=== PATIENT | male | born 1940 | race Caucasian/White ===

== ENCOUNTER 2023-07-31 18:35 | Emergency (ER) | payer MEDICARE, BC, SELFPAY ==
[2023-07-31 18:36] VITALS: BMI 28.4
[2023-07-31 18:43] VITALS: BP 157/82
[2023-07-31 19:00] VITALS: BP 158/77
[2023-07-31 19:02] LABS: % Basophils 0.9 % (0-2); % Eosinophils 6.9 % (0-6); % Immature Granulocytes 0.3 % (0-0.5); % Lymphocytes 23.1 % (20.5-51.1); % Monocytes 8.7 % (1.7-9.3); % Neutrophils 60.1 % (42.2-75.2); Absolute Basophils 0.1 10^3/uL (0-0.2); Absolute Eosinophils 0.5 10^3/uL (0-0.7); Absolute Lymphocytes 1.8 10^3/uL (1.2-3.4); Absolute Monocytes 0.7 10^3/uL (0.1-0.6); Absolute Neutrophils 4.6 10^3/uL (1.4-6.5); Hematocrit 39.3 % (39.0-52.0); Hemoglobin 13.5 g/dL (13.0-18.0); Mean Corp Hgb Conc. 34.4 g/dL (33.0-37.0); Mean Corpuscular Hgb 31.4 pg (27.0-31.0); Mean Corpuscular Volume 91.4 fL (80.0-94.0); Mean Platelet Volume 9.2 fL (7.4-10.4); Nucleated Red Blood Cells % 0 % (-); Platelet Count 272 10^3/uL (130-400); Red Cell Dist. Width 15.5 % (11.5-14.5); White Blood Cell Count 7.7 10^3/uL (4.8-10.8)
[2023-07-31] MEDS: DUONEB 3 ML INH (19:13)
[2023-07-31] MEDS: DECADRON 10 MG IV (19:13)
[2023-07-31 19:18] LABS: COVID-19 Antigen Negative (Negative)
[2023-07-31 19:24] LABS: ALT (SGPT) 23 U/L (0-50); AST (SGOT) 27 U/L (17-59); Alkaline Phosphatase 117 U/L (38-126); Blood Urea Nitrogen 14 mg/dl (9-20); Calcium 8.3 mg/dl (8.4-10.2); Carbon Dioxide 29 mmol/L (22-30); Chloride 101 mmol/L (98-107); Estimated Creatinine Clearance 65 ml/min; Glucose 102 mg/dl (70-99); Potassium 3.7 mmol/L (3.5-5.1); Sodium 134 mmol/L (135-145); Total Bilirubin 1.2 mg/dl (0.2-1.3); Total Protein 6.3 g/dl (6.3-8.2); eGFR > 60.00
[2023-07-31 19:33] LABS: NT-proBNP 86.3 pg/ml
--- NOTE | 2023-07-31 19:33 | ED.GENMED ---
History of Present Illness
General
Chief Complaint: Breathing Problem
Source: patient and family
Exam Limitations: none
Time Seen by Provider: 07/31/23 18:37
Nursing documentation reviewed up to this point in time: agreed with
Travel History
Have you had any contact with someone who has COVID-19?: No
Do you have any symptoms of coronavirus? Fever > 100 degrees, chills, cough, shortness of breath, sore throat, loss of taste or smell, muscle aches, or headache?: Yes
Symptoms:: SOB
History of Present Illness
History of Present Illness:
Patient to ED with complaint of SOB, wheezing. Daughter states he was diagnosed with Covid in jun. Since then he has had a persistant cough. OVer the past few days the cough has worsened. Denies fever/chills. Reports more frequent use of
albuterol without iprovement. PCP placed him on Ceftin on , still no improvment. Brought to ED via EMS for eval.
Past History
Past History
ED Past Medical History: CHF, COPD, HTN, Hypercholesterolemia, Psychiatric (depression) and Other (Normal pressure hydrocephalus, RA, psoriasis, BPH)
ED Past Surgical History: Cardiac (pacemaker) and Other (COLLATERAL CLERK shunt, pacemaker)
Social History
Tobacco: Former smoker
Alcohol: None
Drug: None
Personal:
Living: with family
Review of Systems
Review of Systems
Allergies reviewed?: Yes
All Other Systems: ROS reviewed and negative except as documented in HPI and ROS
Constitutional: Reports no symptoms
EENT: Reports no symptoms
Respiratory: Reports cough and trouble breathing
Cardiac: Reports no symptoms
ABD/GI: Reports no symptoms
: Reports no symptoms
Musculoskeletal: Reports no symptoms
Skin: Reports no symptoms
Neurological: Reports no symptoms
Psychiatric: Reports no symptoms
Phy Exam
General Physical Exam
General Presentation: well appearing and mild distress
General age: appears stated age
General Skin: warm and dry
General Habitus: normal
General Mental: alert
Cardiovascular Exam
Cardiovascular Exam: regular rate/rhythm
Pulmonary Exam
Pulmonary Exam: no respiratory distress and chest non tender
Breath Sounds: Wheeze: generalized
Gastrointestinal Exam
Gastrointestinal Exam: normal bowel sounds, non tender and soft
Musculoskeletal Exam
Musculoskeletal Exam: full ROM and neuro vasc intact
Skin Exam
Skin Exam: normal color, warm/dry and no rash
Psychiatric Exam
Psychiatric Exam: normal mood/affect
Scores
Heart Failure Risk
Heart Failure Risk Score: Not Applicable
Course
Orders/Labs/Results
Orders:
Orders
07/31/23 18:42
Electrocardiogram (*1) Urgent
Reason for Study: Shortness of Breath
EKG- Treatment ONCE
07/31/23 18:45
Complete Blood Count/With Diff Urgent
Comprehensive Metabolic Panel Urgent
NT-proBNP Urgent
Comment: ADD ON
07/31/23 18:47
COVID-19 Antigen Urgent
Source: Nasal Swab
Blood Culture Urgent
SANDOR Source: Blood/Venous
Specimen Description:
Influenza A+B Rapid Molecular Urgent
SANDOR Source: Nasal Swab
Specimen Description:
07/31/23 19:07
Dexamethasone Sod Phosphate [Decadron] 10 mg IV NOW STA
Ipratropium/Albuterol Sulfate [Duoneb] 3 ml INH R NOW ONE
CR Chest - 2 Views Urgent
Comment:
Reason For Exam: cough, SOB
07/31/23 19:09
Add On- LAB Urgent
Tests Added?: bnp
Abnormal Lab Results
07/31/23
18:45
RBC 4.30 L 10^6/uL
(4.70-6.10)
MCH 31.4 H pg
(27.0-31.0)
RDW 15.5 H %
(11.5-14.5)
Absolute Monos (auto) 0.7 H 10^3/uL
(0.1-0.6)
Eosinophils % 6.9 H %
(0-6)
Sodium 134 L mmol/L
(135-145)
Glucose 102 H mg/dl
(70-99)
Calcium 8.3 L mg/dl
(8.4-10.2)
07/31/23 18:45
07/31/23 18:45
Vital Signs
Initial and Last Documented VS:
Initial Vital Signs
Temp Pulse Resp Pulse Ox
98 F 76 14 98
07/31/23 18:39 07/31/23 18:39 07/31/23 18:39 07/31/23 18:39
Last Documented Vital Signs
Temp Pulse Resp BP Pulse Ox
98 F 60 17 155/88 95
07/31/23 18:39 07/31/23 20:35 07/31/23 20:35 07/31/23 20:35 07/31/23 20:35
*Radiology
Radiology exam reviewed: radiology read reviewed
*Pulse Oximetry
Patient hypoxic: no
*Critical Care Note
Total Time (30-74mins, 75-104mins- exclusive of procedures): Not Applicable
Update Note
Update Note:
Improved shaggy damon. Comfortable with discharge back to home. Will recommend prednisone taper, continue neb treatments. Given instructions on s/s to return to ED and he is agreeable to plan.
ED Attending Note
-
Portions of this chart may have been created with voice recognition software.� Occasional wrong word or��sound alike� substitutions may have occurred due to the inherent limitations of voice recognition software.
Discharge Plan
Departure
Patient Disposition: Home (Routine Discharge)
Date of Disposition: 07/31/23
Time of Disposition: 20:29
Patient with high blood pressure during this ER visit?: No
Condition: Good
Covid-19: Not Applicable
Discharge Problem:
Wheezing
Instructions: Exacerbation of COPD (DC)
Prescriptions:
New
prednisone 10 mg Tablet
See Rx Instructions .ROUTE .COMPLEX Qty: 30 0RF
Rx Instructions:
Take By Mouth:
40 mg daily x3 days, 30 mg daily x3 days,
20 mg daily x3 days, 10 mg daily x3 days.
Referrals:
Sirisha Platt MD [Family Provider] -
Activity Restrictions/Additional Instructions:
Return to the emergency department immediately for any changes in/worsening of your symptoms.
Interventions
Interventions:
*Risk Screen - Suicide Last Done: 07/31/23 18:42
*General Assessment Last Done: 07/31/23 18:41
*Neglect/Abuse Screening Last Done: 07/31/23 20:40
ED- Fall Risk Assessment Last Done: 07/31/23 20:40
*ED COVID-19 Vaccine History Last Done: 07/31/23 18:41
*Nursing Disposition Last Done: 07/31/23 20:40
ED- Cardiac Assessment Last Done: 07/31/23 18:52
ED- Pulmonary Assessment Last Done: 07/31/23 18:52
Discharge Date and Time
Discharge Date/Time: 07/31/23 20:43
[2023-07-31 20:00] VITALS: BP 151/71
[2023-07-31 20:35] VITALS: BP 155/88
== END 2023-07-31 20:43 | disposition home or self-care (01) ==
LOC: EMR 18:35
PROVIDERS: EMERGENCY PHYSICIAN Emergency Medicine; FAMILY PHYSICIAN Internal Medicine
DX: R06.2 Wheezing (principal); R05.9 Cough, unspecified; R06.02 Shortness of breath; Z11.52 Encounter for screening for COVID-19; I11.0 Hypertensive heart disease with heart failure; I50.9 Heart failure, unspecified; E78.00 Pure hypercholesterolemia, unspecified; M06.9 Rheumatoid arthritis, unspecified; N40.0 Benign prostatic hyperplasia without lower urinary tract symptoms; J44.9 Chronic obstructive pulmonary disease, unspecified; Z95.0 Presence of cardiac pacemaker; Z87.891 Personal history of nicotine dependence; Z98.2 Presence of cerebrospinal fluid drainage device; Z88.1 Allergy status to other antibiotic agents
CPT/HCPCS: 99284; 96374; 94640; 71046; 80053; 83880; 85025; 87040; 87502; 87811; 93005

== ENCOUNTER 2023-10-21 17:32 | Inpatient (IN) | payer MEDICARE, BC, SELFPAY ==
[2023-10-21 15:00] VITALS: BP 145/65
[2023-10-21 15:03] VITALS: BMI 28.0
--- NOTE | 2023-10-21 15:22 | ED.MUSCINJ ---
HPI-Injury
General
Chief Complaint: Musculo-Skeletal Complaint
Source: patient
Exam Limitations: none
Time Seen by Provider: 10/21/23 15:10
Travel History
Have you had any contact with someone who has COVID-19?: No
Do you have any symptoms of coronavirus? Fever > 100 degrees, chills, cough, shortness of breath, sore throat, loss of taste or smell, muscle aches, or headache?: No
History of Present Illness-Injury
Initial Injury comments:
83-year-old male presents with right hip pain after a trip and fall. He fell onto his right side. Did not hit his head. He has a history of pacemaker, hydrocephalus requiring JIG BORING MACHINE SET UP OPERATOR shunt. On a baby aspirin. He did not hit his head. He denies
chest pain or shortness of breath. No other complaints at this time.
Past History
Past History
ED Past Medical History: CHF, COPD, HTN, Hypercholesterolemia, Psychiatric (depression) and Other (Normal pressure hydrocephalus, RA, psoriasis, BPH)
ED Past Surgical History: Cardiac (pacemaker) and Other (JIG BORING MACHINE SET UP OPERATOR shunt, pacemaker)
Social History
Tobacco: Former smoker
Alcohol: None
Drug: None
Personal:
Living: with family
Phy Exam
Physical Exam
Physical Exam:
General: Well-appearing male no acute respiratory distress
HEENT: Normocephalic atraumatic
Heart: Regular rate and rhythm
Lungs: Clear to auscultation bilaterally no wheezing
Musculoskeletal exam: Spine is nontender. Right hip is tender anteriorly. The right leg is shortened and externally rotated
Vascular: Bilateral lower extremities warm to the touch palpable pulses to the dorsal aspect of the feet
Neurologic: Alert and oriented no facial asymmetry
Ext: No cyanosis, mild edema.
Injury Course
Orders/Labs/Results
Orders:
Orders
10/21/23 15:20
HYDROmorphone [Dilaudid] 0.5 mg IV NOW STA
CR Hip - RT w/wo Pel 2-3 Vw* Urgent
Comment:
Reason For Exam: fall, right hip pain
Include a pelvis x-ray?: Yes
10/21/23 15:44
Complete Blood Count/With Diff Urgent
Comprehensive Metabolic Panel Urgent
PTT Urgent
Prothrombin Time Urgent
10/21/23 16:08
HYDROmorphone [Dilaudid] 0.5 mg IV NOW STA
Abnormal Lab Results
10/21/23
15:44
WBC 15.7 H 10^3/uL
(4.8-10.8)
RBC 3.85 L 10^6/uL
(4.70-6.10)
Hgb 12.3 L g/dL
(13.0-18.0)
Hct 36.1 L %
(39.0-52.0)
MCH 31.9 H pg
(27.0-31.0)
RDW 16.0 H %
(11.5-14.5)
Abs Immat Gran (auto) 0.1 H 10^3/uL
(0-0.05)
Absolute Neuts (auto) 12.3 H 10^3/uL
(1.4-6.5)
Absolute Monos (auto) 1.0 H 10^3/uL
(0.1-0.6)
Absolute Eos (auto) 0.9 H 10^3/uL
(0-0.7)
Immature Gran % 0.7 H %
(0-0.5)
Neutrophils % 78.4 H %
(42.2-75.2)
Lymphocytes % 8.6 L %
(20.5-51.1)
Glucose 104 H mg/dl
(70-99)
Alkaline Phosphatase 134 H U/L
(38-126)
Total Protein 5.7 L g/dl
(6.3-8.2)
10/21/23 15:44
10/21/23 15:44
MDM/Problems Addressed
Differential Diagnosis Includes:
Fall with right hip pain. Consider fracture versus dislocation. X-rays pending. Will treat pain with Dilaudid. Labs pending.
*Critical Care Note
Total Time (30-74mins, 75-104mins- exclusive of procedures): Not Applicable
Update Note
Update Note:
I personally visualized x-rays of the right hip which demonstrate anterior trochanteric hip fracture of the right femur. Patient was treated with pain medicine here. Labs were ordered and reviewed. Admitted to hospitalist service orthopedics,
Ambrocio made aware.
ED Attending Note
-
Portions of this chart may have been created with voice recognition software.� Occasional wrong word or��sound alike� substitutions may have occurred due to the inherent limitations of voice recognition software.
Discharge Plan
Departure
Date of Disposition: 10/21/23
Time of Disposition: 16:53
Admit to: Telemetry
Presentation/result/management discussed w/ accepting MD/DO: Hospitalist
Prescriptions:
No Action
prednisone 10 mg Tablet
See Rx Instructions .ROUTE .COMPLEX Qty: 30 0RF
Rx Instructions:
Take By Mouth:
40 mg daily x3 days, 30 mg daily x3 days,
20 mg daily x3 days, 10 mg daily x3 days.
Interventions
Interventions:
*Risk Screen - Suicide Last Done: 10/21/23 15:00
*General Assessment Last Done: 10/21/23 15:00
*Neglect/Abuse Screening Last Done: 10/21/23 15:00
ED-Musculoskeletal Assessment Last Done: 10/21/23 15:03
Discharge Date and Time
Print Language: IRANIAN
[2023-10-21] MEDS: DILAUDID 0.5 MG IV ×4 (15:35→23:04)
[2023-10-21 15:55] LABS: % Basophils 0.4 % (0-2); % Eosinophils 5.8 % (0-6); % Immature Granulocytes 0.7 % (0-0.5); % Lymphocytes 8.6 % (20.5-51.1); % Monocytes 6.1 % (1.7-9.3); % Neutrophils 78.4 % (42.2-75.2); Absolute Basophils 0.1 10^3/uL (0-0.2); Absolute Eosinophils 0.9 10^3/uL (0-0.7); Absolute Immature Granulocytes 0.1 10^3/uL (0-0.05); Absolute Lymphocytes 1.4 10^3/uL (1.2-3.4); Absolute Neutrophils 12.3 10^3/uL (1.4-6.5); Hematocrit 36.1 % (39.0-52.0); Hemoglobin 12.3 g/dL (13.0-18.0); Mean Corp Hgb Conc. 34.1 g/dL (33.0-37.0); Mean Corpuscular Hgb 31.9 pg (27.0-31.0); Mean Corpuscular Volume 93.8 fL (80.0-94.0); Mean Platelet Volume 9.1 fL (7.4-10.4); Nucleated Red Blood Cells % 0 % (-); Platelet Count 269 10^3/uL (130-400); Red Blood Cell Count 3.85 10^6/uL (4.70-6.10); White Blood Cell Count 15.7 10^3/uL (4.8-10.8)
[2023-10-21 16:00] VITALS: BP 116/64
[2023-10-21 16:05] LABS: INR 1.12; PT 14.4 Sec (11.4-14.6)
[2023-10-21 16:06] LABS: APTT 33.3 Sec (23.4-35.0)
[2023-10-21 16:08] LABS: ALT (SGPT) 25 U/L (0-50); AST (SGOT) 24 U/L (17-59); Albumin 3.5 g/dl (3.5-5.0); Alkaline Phosphatase 134 U/L (38-126); Blood Urea Nitrogen 13 mg/dl (9-20); Calcium 8.6 mg/dl (8.4-10.2); Carbon Dioxide 29 mmol/L (22-30); Chloride 105 mmol/L (98-107); Estimated Creatinine Clearance 73 ml/min; Glucose 104 mg/dl (70-99); Potassium 3.9 mmol/L (3.5-5.1); Sodium 136 mmol/L (135-145); Total Bilirubin 0.9 mg/dl (0.2-1.3); Total Protein 5.7 g/dl (6.3-8.2); eGFR > 60.00
--- NOTE | 2023-10-21 17:10 | HPS.HSE ---
Family Physician
-
Family Physician: Sirisha Platt
Chief Complaint
-
hip pain
History of Present Illness
83-year-old male past medical history of bradycardia status post pacemaker, carotid artery stenosis, hypertension, asthma/COPD, hypercholesterolemia, depression, normal pressure hydrocephalus status post CORE COMPOSER MACHINE TENDER shunt several years ago, subdural hematoma
status post evacuation in 2020, rheumatoid arthritis, psoriasis, BPH presenting after he was trying to ambulate with his cane outside and slipped on wet ground and fell onto his right side with pain. He denies hitting his head. Denied any
dizziness or chest pain or shortness of breath.
Patient normally has good functional status. He has chronic lower extremity edema which is stable. He recently had pulmonary issues with cough and shortness of breath and was treated with steroids and pulmonary symptoms are currently improved. He
saw police officer crime prevention yesterday and pacemaker is functioning well. No history of heart failure or cardiac stents.
Drinks alcohol occasionally. He denies smoking.
Medical History
Past Medical History
Past Medical History: Reports Other (bradycardia status post pacemaker, carotid artery stenosis, hypertension, asthma/COPD, hypercholesterolemia, depression, normal pressure hydrocephalus status post CORE COMPOSER MACHINE TENDER shunt)
Past Surgical History: Reports Other (Cardiac (pacemaker) and Other (CORE COMPOSER MACHINE TENDER shunt, pacemaker))
Social History
Tobacco: Non-smoker
Alcohol: Occasional
Drug: None
Family History
Family History: Not pertinent
Allergies / Home Medications
Allergies reflects when Allergies were last updated in [facility].
Home Medications with original date entered in [facility]
Allergy/Medication List:
Allergies
Allergy/AdvReac Type Severity Reaction Status Date / Time
clindamycin Allergy Unknown Verified 10/10/22 19:30
Home Medications
prednisone 10 mg tablet See Rx Instructions .Route .COMPLEX #30 tabs 07/31/23
Review of Systems
-
History Source: Patient
A 12 point ROS was completed and negative except as noted: Yes
Constitutional: Reports No Symptoms
EENT: Reports No Symptoms
Respiratory: Reports No Symptoms
Cardiac: Reports No Symptoms
Abdomen/GI: Reports No Symptoms
: Reports No Symptoms
Musculoskeletal: Reports See HPI
Skin: Reports No Symptoms
Neurological: Reports No Symptoms
Endocrine: Reports No Symptoms
Hematologic/Lymphatic: Reports No Symptoms
Psych: Reports No Symptoms
Physical Exam
Vital Signs
Vital Signs
Temp Pulse Resp BP Pulse Ox
97.5 F 60 14 145/65 95
10/21/23 15:00 10/21/23 15:00 10/21/23 15:00 10/21/23 15:00 10/21/23 15:00
Physical Exam
General: Well Developed, Well Nourished and No Apparent Distress
HEENT: NormoCephalic, Moist mucous membranes and Atraumatic
Respiratory: Clear
Cardiac: S1/S2 and Regular Rhythm; No Murmur or Rub
GI: Soft, Non Tender, Non Distended and Normal Bowel Sounds; No Organomegaly
Rectal: Deferred by Provider
Musculoskeletal: No Clubbing, No Cyanosis and No Edema
Skin: No Rash
Neuro: Nonfocal/grossly intact
Laboratory Results
-
10/21/23 15:44
10/21/23 15:44
Laboratory Results
PT 14.4 Sec (11.4-14.6) 10/21/23 15:44
INR 1.12 10/21/23 15:44
APTT 33.3 Sec (23.4-35.0) 10/21/23 15:44
Total Bilirubin 0.9 mg/dl (0.2-1.3) 10/21/23 15:44
AST 24 U/L (17-59) 10/21/23 15:44
ALT 25 U/L (0-50) 10/21/23 15:44
Alkaline Phosphatase 134 U/L (38-126) H 10/21/23 15:44
Data Reviewed
-
Lab Data: Labs Reviewed by me
Old Records: Reviewed
Impression/Plan
-
IMPRESSION:
PLAN:
# Right intertrochanteric hip fracture
-N.p.o. past midnight
-Ortho consulted
-Tylenol, Dilaudid for pain as needed
-valium for muscle spasms
-Patient with RCRI risk of 3.9%, low risk and can proceed to surgery
History of bradycardia status post pacemaker
Chronic lower extremity venous insufficiency/lymphedema
-Stable
Asthma/COPD
Essential hypertension
Hypercholesterolemia
Anxiety/depression
History of subdural hematoma status post evacuation
Normal pressure hydrocephalus status post CORE COMPOSER MACHINE TENDER shunt
Carotid artery stenosis
Rheumatoid arthritis
Psoriasis
BPH
Full code
DVT prophylaxis�SCDs
N.p.o. past midnight
--- NOTE | 2023-10-21 17:12 | W.PN.UPDATE ---
Update Note
Progress Note Update
Has R IT hip fx
For OR tomorrow
thanks
GGMD
[2023-10-21] MEDS: VALIUM INJECTION 2 MG IV (17:40)
[2023-10-21 19:07] VITALS: BP 142/69
[2023-10-21 20:11] VITALS: BMI 28.0
[2023-10-21] MEDS: TYLENOL 650 MG PO (20:22)
[2023-10-21] MEDS: REFRESH CELLUVISC GEL 1 DROPS BOTH EYES (20:41)
[2023-10-21] MEDS: DUONEB 3 ML INH (20:56)
[2023-10-21] MEDS: PULMICORT 0.5 MG INH (20:56)
--- NOTE | 2023-10-21 21:35 | PTCARENOTE ---
Received patient from ED via stretcher approx 19:00. Pt AAOX3. QAWALANGIN. Pox: 96% RA. Call agarwal within reach. Family at bedside. Plan of care ongoing.
[2023-10-21 23:30] VITALS: BP 105/58
[2023-10-22] VITALS (10 sets, daily range): BP systolic 100–146; BP diastolic 58–77; BMI 28.9
[2023-10-22] MEDS: VALIUM 2 MG PO ×3 (01:34→20:47)
[2023-10-22] MEDS: DILAUDID 0.5 MG IV ×3 (04:32→13:25)
[2023-10-22 05:30] LABS: % Basophils 0.8 % (0-2); % Eosinophils 8.9 % (0-6); % Immature Granulocytes 0.7 % (0-0.5); % Monocytes 9.2 % (1.7-9.3); % Neutrophils 62.4 % (42.2-75.2); Absolute Basophils 0.1 10^3/uL (0-0.2); Absolute Eosinophils 0.7 10^3/uL (0-0.7); Absolute Immature Granulocytes 0.1 10^3/uL (0-0.05); Absolute Lymphocytes 1.4 10^3/uL (1.2-3.4); Absolute Monocytes 0.7 10^3/uL (0.1-0.6); Absolute Neutrophils 4.7 10^3/uL (1.4-6.5); Hematocrit 33.4 % (39.0-52.0); Hemoglobin 11.4 g/dL (13.0-18.0); Mean Corp Hgb Conc. 34.1 g/dL (33.0-37.0); Mean Corpuscular Hgb 31.9 pg (27.0-31.0); Mean Corpuscular Volume 93.6 fL (80.0-94.0); Mean Platelet Volume 9.3 fL (7.4-10.4); Nucleated Red Blood Cells % 0 % (-); Platelet Count 237 10^3/uL (130-400); Red Blood Cell Count 3.57 10^6/uL (4.70-6.10); Red Cell Dist. Width 15.9 % (11.5-14.5); White Blood Cell Count 7.5 10^3/uL (4.8-10.8)
[2023-10-22 06:01] LABS: ALT (SGPT) 21 U/L (0-50); AST (SGOT) 25 U/L (17-59); Albumin 3.3 g/dl (3.5-5.0); Alkaline Phosphatase 119 U/L (38-126); Blood Urea Nitrogen 14 mg/dl (9-20); Calcium 8.4 mg/dl (8.4-10.2); Carbon Dioxide 28 mmol/L (22-30); Chloride 102 mmol/L (98-107); Estimated Creatinine Clearance 86 ml/min; Glucose 100 mg/dl (70-99); Potassium 3.8 mmol/L (3.5-5.1); Sodium 136 mmol/L (135-145); Total Bilirubin 1.5 mg/dl (0.2-1.3); Total Protein 5.4 g/dl (6.3-8.2); eGFR > 60.00
[2023-10-22] MEDS: DUONEB 3 ML INH ×2 (07:17→20:14)
[2023-10-22] MEDS: PULMICORT 0.5 MG INH ×2 (07:17→20:14)
[2023-10-22 08:04] LABS: Urine Albumin Negative (Neg - Trace); Urine Bilirubin Negative (Negative); Urine Character Clear (Clear); Urine Color Yellow; Urine Glucose Negative (Negative); Urine Ketone Negative (Negative); Urine Leukocyte Negative (Negative); Urine Nitrite Negative (Negative); Urine Occult Blood Negative (Negative); Urine Urobilinogen Negative (Neg - 1+)
[2023-10-22] MEDS: OCUVITE SOFTGEL 1 CAP PO (08:08)
[2023-10-22] MEDS: LIPITOR 80 MG PO (08:08)
[2023-10-22] MEDS: TYLENOL 650 MG PO (08:08)
[2023-10-22] MEDS: FLOMAX 0.400000000000000022 MG PO (08:09)
[2023-10-22] MEDS: LASIX 40 MG PO (08:09)
[2023-10-22] MEDS: ASPIR LOW (ENTERIC COATED) 81 MG PO (08:09)
[2023-10-22] MEDS: FOLVITE 0.400000000000000022 MG PO (08:09)
[2023-10-22] MEDS: NORVASC 2.5 MG PO (08:09)
[2023-10-22] MEDS: WELLBUTRIN SR (12 hour sustained release) 150 MG PO (08:09)
--- NOTE | 2023-10-22 08:15 | W.PN.HOSP.TC ---
Today's Communication/Plan
-
As noted low risk for proposed surgical intervention for hip
Monitor hemodynamics postop
No cardiovascular issues preop and functional status stable
Assessment / Plan
Assessment / Plan
83-year-old male past medical history of bradycardia status post pacemaker, carotid artery stenosis, hypertension, asthma/COPD, hypercholesterolemia, depression, normal pressure hydrocephalus status post FITNESS SALES CONSULTANT shunt several years ago, subdural hematoma
status post evacuation in 2020, rheumatoid arthritis, psoriasis, BPH presenting after he was trying to ambulate with his cane outside and slipped on wet ground and fell onto his right side with pain. He denies hitting his head. Denied any
dizziness or chest pain or shortness of breath.
Patient normally has good functional status. He has chronic lower extremity edema which is stable. He recently had pulmonary issues with cough and shortness of breath and was treated with steroids and pulmonary symptoms are currently improved. He
saw racecar driver yesterday and pacemaker is functioning well. No history of heart failure or cardiac stents.
Drinks alcohol occasionally. He denies smoking.
# Right intertrochanteric hip fracture
-N.p.o. past midnight
-Ortho consulted for OR today
-Tylenol, Dilaudid for pain as needed
-valium for muscle spasms
-Was fortuitously just seen by his racecar driver who underwent stress testing in past with interrogation of pacemaker that was also adequate
-Patient with RCRI risk of 3.9%, low risk and can proceed to surgery
History of bradycardia status post pacemaker
Chronic lower extremity venous insufficiency/lymphedema
-Stable
Asthma/COPD
Essential hypertension
Hypercholesterolemia
Anxiety/depression
History of subdural hematoma status post evacuation
Normal pressure hydrocephalus status post FITNESS SALES CONSULTANT shunt
Carotid artery stenosis
Rheumatoid arthritis
According to daughter some history of anemia baseline hemoglobin 12.3 prior to surgery
-Will monitor and trend H&H
Psoriasis
BPH
Full code
DVT prophylaxis�SCDs
N.p.o. past midnight
Anticipated Discharge: 24 - 48 hours
Subjective/Interval History
-
Date of Service: October 22, 2023
Has no present complaints does refer pain referred to his right hip and groin with any movement in bed no distress no chest pain no shortness of breath
Objective Data
-
Labs:
Laboratory Results
10/22/23
05:07
WBC 7.5
Hgb 11.4 L
Hct 33.4 L
Plt Count 237
Sodium 136
Potassium 3.8
Chloride 102
Carbon Dioxide 28
BUN 14
Creatinine 0.5 L
Glucose 100 H
Calcium 8.4
Total Bilirubin 1.5 H
AST 25
ALT 21
Alkaline Phosphatase 119
Vital Signs:
Vital Signs
Temp Pulse Resp BP Pulse Ox
97.9 F 63 16 146/71 94
10/22/23 07:59 10/22/23 07:59 10/22/23 07:59 10/22/23 07:59 10/22/23 07:59
I&O
10/21/23 10/22/23 10/23/23
06:59 06:59 06:59
Output Total 700 / 700
Balance -700 / -700
Review of Systems
-
History Source: Patient
Constitutional: Reports No Symptoms
Respiratory: Reports No Symptoms
Genitourinary: Reports No Symptoms
Hematologic / Lymphatic: Reports No Symptoms
Physical Exam
-
General: Well Developed
HEENT: Normocephalic
Respiratory: Clear to Auscultation
Musculoskeletal: Edema, Right Lower Extrem (Shortened and externally rotated)
Neuro: Awake, Alert, Oriented, Facial Droop (Chronic right nasolabial droop) and Other
Psych: Calm
Data Reviewed
-
Total Time Spent with Patient (in minutes): 45
Labs: Labs Reviewed by me
--- NOTE | 2023-10-22 14:59 | PTCARENOTE ---
Patient to operating room for repair of right hip fracture; Transported by volunteers in bed; Family aware
--- NOTE | 2023-10-22 16:08 | CM ---
Patient seen bedside with daughter.
Patient from [facility] living, hs dementia.
Per daughter patient has short term Memory loss with hx adult onset hydrocephalus and ATHLETIC COORDINATOR shunt.
S/p fall with hx fx, for OR today.
Prior to admission ambulated with a cane.
Family interested in skilled rehab- [facility]
PCP: Dr Platt
Pharmacy: [facility] [phone]
Plan: OR today, probable skilled rehab
[2023-10-22] MEDS: DILAUDID 0.25 MG IV (17:33)
[2023-10-22] MEDS: NORMOSOL-R 1000 IV (17:46)
--- NOTE | 2023-10-22 18:33 | PTCARENOTE ---
Patient received from PACU in bed; IVF infusing; Surgical site assessed with MECHANICAL COMMISSIONING ENGINEER; Right hip aquacell x2, distal aquacell with scant amount of drainage; +2 DP pulses; Assessment ongoing
[2023-10-22] MEDS: COLACE 100 MG PO (20:44)
[2023-10-22] MEDS: REFRESH CELLUVISC GEL 1 DROPS BOTH EYES (20:47)
[2023-10-23] VITALS (7 sets, daily range): BP systolic 108–143; BP diastolic 57–77; PULSE 68; O2SAT 94; BMI 29.2
[2023-10-23] MEDS: ANCEF 5 IV ×2 (00:15→08:53)
[2023-10-23] MEDS: NORMOSOL-R 1000 IV (02:53)
[2023-10-23] MEDS: TYLENOL 650 MG PO (05:24)
[2023-10-23 06:00] LABS: Hematocrit 33.3 % (39.0-52.0); Hemoglobin 11.5 g/dL (13.0-18.0)
[2023-10-23 06:31] LABS: Blood Urea Nitrogen 14 mg/dl (9-20); Calcium 8.2 mg/dl (8.4-10.2); Carbon Dioxide 28 mmol/L (22-30); Chloride 102 mmol/L (98-107); Estimated Creatinine Clearance 86 ml/min; Glucose 143 mg/dl (70-99); Potassium 4.2 mmol/L (3.5-5.1); Sodium 134 mmol/L (135-145); eGFR > 60.00
[2023-10-23] MEDS: DUONEB 3 ML INH ×2 (07:11→18:13)
[2023-10-23] MEDS: PULMICORT 0.5 MG INH ×2 (07:11→18:13)
--- NOTE | 2023-10-23 08:18 | W.PN.HOSP.TC ---
Today's Communication/Plan
-
Await PT/OT eval
Continue tamsulosin and monitor urine output and for retention
Recheck CBC in a.m.
Otherwise stable for discharge
DVT prophylaxis as outlined by orthopedics presently on Lovenox
Assessment / Plan
Assessment / Plan
83-year-old male past medical history of bradycardia status post pacemaker, carotid artery stenosis, hypertension, asthma/COPD, hypercholesterolemia, depression, normal pressure hydrocephalus status post FARM DEMONSTRATOR shunt several years ago, subdural hematoma
status post evacuation in 2020, rheumatoid arthritis, psoriasis, BPH presenting after he was trying to ambulate with his cane outside and slipped on wet ground and fell onto his right side with pain. He denies hitting his head. Denied any
dizziness or chest pain or shortness of breath.
Patient normally has good functional status. He has chronic lower extremity edema which is stable. He recently had pulmonary issues with cough and shortness of breath and was treated with steroids and pulmonary symptoms are currently improved. He
saw fabric cutter yesterday and pacemaker is functioning well. No history of heart failure or cardiac stents.
Drinks alcohol occasionally. He denies smoking.
# Right intertrochanteric hip fracture/status post ORIF
-Ortho consulted
-Tylenol, Dilaudid for pain as needed
-valium for muscle spasms
-Was fortuitously just seen by his fabric cutter who underwent stress testing in past with interrogation of pacemaker that was also adequate
-Patient with RCRI risk of 3.9%, low risk and can proceed to surgery
History of bradycardia status post pacemaker
Chronic lower extremity venous insufficiency/lymphedema
-Stable
Asthma/COPD/stable
Essential hypertension
Hypercholesterolemia
Anxiety/depression
History of subdural hematoma status post evacuation
Normal pressure hydrocephalus status post FARM DEMONSTRATOR shunt
Carotid artery stenosis
Rheumatoid arthritis
According to daughter some history of anemia baseline hemoglobin 12.3 prior to surgery
-Will monitor and trend H&H
-Stable postop thus far recheck in a.m.
Postop urine retention noted
-Required single straight cath
-Now voiding
-Continue tamsulosin
Psoriasis
BPH
Full code
DVT prophylaxis�SCDs/Lovenox as per Ortho
Anticipated Discharge: Within 24 hours
Subjective/Interval History
-
Date of Service: October 23, 2023
Relates now he has been able to void denies any abdominal distention or abdominal tenderness or suprapubic fullness or discomfort. Eating well.
Objective Data
-
Labs:
Laboratory Results
10/23/23
04:49
Hgb 11.5 L
Hct 33.3 L
Sodium 134 L
Potassium 4.2
Chloride 102
Carbon Dioxide 28
BUN 14
Creatinine 0.6 L
Glucose 143 H
Calcium 8.2 L
Vital Signs:
Vital Signs
Temp Pulse Resp BP Pulse Ox
97.6 F 61 18 108/57 95
10/23/23 07:00 10/23/23 07:13 10/23/23 07:13 10/23/23 07:00 10/23/23 07:13
I&O
10/22/23 10/23/23 10/24/23
06:59 06:59 06:59
Intake Total 1540 / 1540
Output Total 700 / 700 1600 / 1600
Balance -700 / -700 -60 / -60
Review of Systems
-
History Source: Patient and Family
Constitutional: Reports No Symptoms
EENT: Reports No Symptoms Reported
Respiratory: Reports No Symptoms
Cardiac: Reports No Symptoms
Abdomen/GI: Reports No Symptoms
Genitourinary: Reports No Symptoms and Difficulty Voiding (Earlier required straight cath now voiding)
Physical Exam
-
General: Well Developed
HEENT: Normocephalic
Respiratory: Clear to Auscultation
Cardiac: Regular Rhythm
Breast: Deferred by me
GI: Soft
Genito-urinary: No Costovertebral Tender
Musculoskeletal: No Clubbing
Skin: Warm
Neuro: Awake, Alert, Oriented and AO x 3
Data Reviewed
-
Total Time Spent with Patient (in minutes): 45
Labs: Labs Reviewed by me (Hemoglobin stable at 11.5 sodium 134 creatinine 0.6)
[2023-10-23] MEDS: LIPITOR 80 MG PO (08:51)
[2023-10-23] MEDS: LASIX 40 MG PO (08:51)
[2023-10-23] MEDS: ASPIR LOW (ENTERIC COATED) 81 MG PO (08:51)
[2023-10-23] MEDS: WELLBUTRIN SR (12 hour sustained release) 150 MG PO (08:52)
[2023-10-23] MEDS: FOLVITE 0.400000000000000022 MG PO (08:52)
[2023-10-23] MEDS: NORVASC 2.5 MG PO (08:52)
[2023-10-23] MEDS: LOVENOX 30 MG SC (08:52)
[2023-10-23] MEDS: COLACE 100 MG PO ×2 (08:52→19:49)
[2023-10-23] MEDS: FLOMAX 0.400000000000000022 MG PO (08:52)
[2023-10-23] MEDS: OCUVITE SOFTGEL 1 CAP PO (08:52)
[2023-10-23] MEDS: NIZORAL SHAMPOO 120 ML TOPICAL (08:54)
--- NOTE | 2023-10-23 10:02 | W.PN.UPDATE ---
Update Note
Progress Note Update
POD 1 from hip surgery
PT/OT ordered
Full WB R LE with walker
Recommend Lovenox for 2 weeks follwed by Aspirin 325mg once daily for 3 additional weeks for DVT prophylaxis
Have Pt F/U with me in 2 weeks as outpatient
GGMD
--- NOTE | 2023-10-23 12:07 | CM ---
R hip ORIF on 10/22/23. Anticipate SNF. Await therapy evaluation and recommendations.
[2023-10-23] MEDS: DILAUDID 0.5 MG IV (15:22)
[2023-10-23] MEDS: ZOFRAN 4 MG IV (18:10)
[2023-10-23] MEDS: REFRESH CELLUVISC GEL 1 DROPS BOTH EYES (22:05)
[2023-10-24] MEDS: TYLENOL 650 MG PO (02:27)
[2023-10-24 03:12] VITALS: BP 138/69
[2023-10-24 06:00] VITALS: BMI 28.8
--- NOTE | 2023-10-24 06:36 | PTCARENOTE ---
patient found to have pulled up some of the sides of surgical aquacells on R hip. both aquacells changed, no new drainage noted. surgical vero approximated and intact. patient tolerated well
[2023-10-24 07:04] LABS: Hematocrit 27.3 % (39.0-52.0); Hemoglobin 9.3 g/dL (13.0-18.0); Mean Corp Hgb Conc. 34.1 g/dL (33.0-37.0); Mean Corpuscular Hgb 31.4 pg (27.0-31.0); Mean Corpuscular Volume 92.2 fL (80.0-94.0); Mean Platelet Volume 9.4 fL (7.4-10.4); Platelet Count 236 10^3/uL (130-400); Red Blood Cell Count 2.96 10^6/uL (4.70-6.10); Red Cell Dist. Width 15.7 % (11.5-14.5); White Blood Cell Count 11.5 10^3/uL (4.8-10.8)
[2023-10-24 07:20] VITALS: BP 138/66
[2023-10-24 07:33] LABS: Blood Urea Nitrogen 19 mg/dl (9-20); Carbon Dioxide 26 mmol/L (22-30); Chloride 105 mmol/L (98-107); Estimated Creatinine Clearance 73 ml/min; Glucose 103 mg/dl (70-99); Potassium 3.7 mmol/L (3.5-5.1); Sodium 135 mmol/L (135-145); eGFR > 60.00
--- NOTE | 2023-10-24 07:43 | W.PN.HOSP.TC ---
Today's Communication/Plan
-
Continue to monitor H&H
Monitor urine output and renal status
Bladder scan protocol
Awaiting rehab disposition otherwise stable
Assessment / Plan
Assessment / Plan
83-year-old male past medical history of bradycardia status post pacemaker, carotid artery stenosis, hypertension, asthma/COPD, hypercholesterolemia, depression, normal pressure hydrocephalus status post HEALTH CARE ATTORNEY shunt several years ago, subdural hematoma
status post evacuation in 2020, rheumatoid arthritis, psoriasis, BPH presenting after he was trying to ambulate with his cane outside and slipped on wet ground and fell onto his right side with pain. He denies hitting his head. Denied any
dizziness or chest pain or shortness of breath.
Patient normally has good functional status. He has chronic lower extremity edema which is stable. He recently had pulmonary issues with cough and shortness of breath and was treated with steroids and pulmonary symptoms are currently improved. He
saw stranding machine operator yesterday and pacemaker is functioning well. No history of heart failure or cardiac stents.
Drinks alcohol occasionally. He denies smoking.
# Right intertrochanteric hip fracture/status post ORIF
-Ortho consulted
-Tylenol, Dilaudid for pain as needed
-valium for muscle spasms
-Was fortuitously just seen by his stranding machine operator who underwent stress testing in past with interrogation of pacemaker that was also adequate
-Patient with RCRI risk of 3.9%, low risk and can proceed to surgery
Acute blood loss anemia
-Hemoglobin on presentation 12.3 now down to 9.3
-Continue to monitor hemodynamically stable
History of bradycardia status post pacemaker
Chronic lower extremity venous insufficiency/lymphedema
-Stable
Asthma/COPD/stable
Essential hypertension
Hypercholesterolemia
Anxiety/depression
History of subdural hematoma status post evacuation
Normal pressure hydrocephalus status post HEALTH CARE ATTORNEY shunt
Carotid artery stenosis
Rheumatoid arthritis
m.
Postop urine retention noted
-Required single straight cath
-Now voiding
-Continue tamsulosin
Psoriasis
BPH
Full code
DVT prophylaxis�SCDs/Lovenox as per Ortho
Anticipated Discharge: 24 - 48 hours
Subjective/Interval History
-
Date of Service: October 24, 2023
Did not sleep much states he was woken up every hour he is voiding okay minimal pain while in bed did fairly well in PT
Objective Data
-
Labs:
Laboratory Results
10/24/23
06:07
WBC 11.5 H
Hgb 9.3 L
Hct 27.3 L
Plt Count 236
Sodium 135
Potassium 3.7
Chloride 105
Carbon Dioxide 26
BUN 19
Creatinine 0.7
Glucose 103 H
Calcium 8.0 L
Vital Signs:
Vital Signs
Temp Pulse Resp BP Pulse Ox
97.9 F 95 18 138/69 94
10/24/23 03:12 10/24/23 03:12 10/24/23 03:12 10/24/23 03:12 10/24/23 03:12
I&O
10/23/23 10/24/23 10/25/23
06:59 06:59 06:59
Intake Total 1540 / 1540 840 / 840
Output Total 1600 / 1600 700 / 700
Balance -60 / -60 140 / 140
Review of Systems
-
History Source: Patient
Constitutional: Reports No Symptoms
Respiratory: Reports No Symptoms
Cardiac: Reports No Symptoms
Musculoskeletal: Reports Muscle Weakness
Physical Exam
-
General: Well Developed
HEENT: Normocephalic
Respiratory: Clear to Auscultation
Cardiac: Regular Rhythm
GI: Soft and Nontender
Musculoskeletal: Edema, Right Lower Extrem (Good peripheral pulses dorsalis pedis and posterior tibialis minimal peripheral edema)
Neuro: Awake, Alert and Oriented
Data Reviewed
-
Total Time Spent with Patient (in minutes): 56
Labs: Labs Reviewed by me (Hemoglobin stable 9.3 low drop of 2 g from 11.5 yesterday)
[2023-10-24] MEDS: FLOMAX 0.400000000000000022 MG PO (07:47)
[2023-10-24] MEDS: FOLVITE 0.400000000000000022 MG PO (07:47)
[2023-10-24] MEDS: ASPIR LOW (ENTERIC COATED) 81 MG PO (07:47)
[2023-10-24] MEDS: LASIX 40 MG PO (07:47)
[2023-10-24] MEDS: OCUVITE SOFTGEL 1 CAP PO (07:47)
[2023-10-24] MEDS: LOVENOX 30 MG SC (07:48)
[2023-10-24] MEDS: LIPITOR 80 MG PO (07:48)
[2023-10-24] MEDS: COLACE 100 MG PO ×2 (07:48→20:11)
[2023-10-24] MEDS: WELLBUTRIN SR (12 hour sustained release) 150 MG PO (07:48)
[2023-10-24] MEDS: NORVASC 2.5 MG PO (07:48)
[2023-10-24] MEDS: PULMICORT 0.5 MG INH ×2 (08:44→20:57)
[2023-10-24] MEDS: DUONEB 3 ML INH ×3 (08:45→20:57)
--- NOTE | 2023-10-24 10:38 | PTCARENOTE ---
0900: Dr. Rasmussen notified this AM that patient has not had a BM since 10/20/2023. No new orders received at this time.
--- NOTE | 2023-10-24 11:23 | PTCARENOTE ---
Patients daughter with concerns that patient hit his head during unwitnessed fall prior to admission. Daughter informed nurse that patient has upcoming outpatient head CT on Thursday to evaluate pre existing hydrocephalus. Daughter asking for head CT
to be ordered. Dr. Rasmussen made aware. Patients neurologic assessment remains unchanged. Care ongoing.
[2023-10-24 12:05] VITALS: BP 113/64; BP 114/62; PULSE 67; O2SAT 96
--- NOTE | 2023-10-24 12:10 | CM ---
CM following re: d/c planning.
CM met with pt and family at bedside to discuss disposition.
D/c plan is for SNF placement, pt and family agreeable.
Per therapy, recs for SNF.
SNF choices: [facility] and [facility].
Referrals sent.
CM continuing to follow.
Of note, pt has not had a BM for several days, this will delay his d/c to SNF.
MD made aware.
Goal: SNF, pending bed and d/c.
[2023-10-24] MEDS: MIRALAX 17 GRAMS PO (12:18)
[2023-10-24] MEDS: SENOKOT-S 1 TABLET PO (14:11)
[2023-10-24 15:30] VITALS: BP 118/88
[2023-10-24] MEDS: DULCOLAX 10 MG RECTAL (18:11)
[2023-10-24] MEDS: REFRESH CELLUVISC GEL 1 DROPS BOTH EYES (21:23)
[2023-10-24 23:30] VITALS: BP 114/68
[2023-10-25 05:55] LABS: Hematocrit 27.5 % (39.0-52.0); Hemoglobin 9.5 g/dL (13.0-18.0); Mean Corp Hgb Conc. 34.5 g/dL (33.0-37.0); Mean Corpuscular Hgb 31.8 pg (27.0-31.0); Mean Platelet Volume 9.2 fL (7.4-10.4); Platelet Count 260 10^3/uL (130-400); Red Blood Cell Count 2.99 10^6/uL (4.70-6.10); Red Cell Dist. Width 15.8 % (11.5-14.5); White Blood Cell Count 10.2 10^3/uL (4.8-10.8)
[2023-10-25 06:00] VITALS: BMI 28.8
[2023-10-25 06:29] LABS: Blood Urea Nitrogen 14 mg/dl (9-20); Carbon Dioxide 28 mmol/L (22-30); Chloride 106 mmol/L (98-107); Estimated Creatinine Clearance 86 ml/min; Glucose 93 mg/dl (70-99); Potassium 3.8 mmol/L (3.5-5.1); Sodium 135 mmol/L (135-145); eGFR > 60.00
[2023-10-25 07:10] VITALS: BP 138/69
--- NOTE | 2023-10-25 07:59 | W.PN.HOSP.TC ---
Today's Communication/Plan
-
Stable medically for discharge
Discharge held up due to to constipation yesterday moved bowels this morning
Ortho recommending Lovenox for 2 weeks followed by aspirin 325 mg daily for 3 additional weeks for DVT prophylaxis
Weightbearing to right lower extremity with walker/Ortho follow-up in 2 weeks as outpatient
Assessment / Plan
Assessment / Plan
83-year-old male past medical history of bradycardia status post pacemaker, carotid artery stenosis, hypertension, asthma/COPD, hypercholesterolemia, depression, normal pressure hydrocephalus status post TIME CLOCK MECHANIC shunt several years ago, subdural hematoma
status post evacuation in 2020, rheumatoid arthritis, psoriasis, BPH presenting after he was trying to ambulate with his cane outside and slipped on wet ground and fell onto his right side with pain. He denies hitting his head. Denied any
dizziness or chest pain or shortness of breath.
Patient normally has good functional status. He has chronic lower extremity edema which is stable. He recently had pulmonary issues with cough and shortness of breath and was treated with steroids and pulmonary symptoms are currently improved. He
saw editor trade journal yesterday and pacemaker is functioning well. No history of heart failure or cardiac stents.
Drinks alcohol occasionally. He denies smoking.
# Right intertrochanteric hip fracture/status post ORIF
-Ortho consulted
-Tylenol, Dilaudid for pain as needed
-valium for muscle spasms
-Was fortuitously just seen by his editor trade journal who underwent stress testing in past with interrogation of pacemaker that was also adequate
-Patient with RCRI risk of 3.9%, low risk and can proceed to surgery
Acute blood loss anemia
-Hemoglobin on presentation 12.3 now down to 9.3>> 9.5
-Continue to monitor hemodynamically stable
History of bradycardia status post pacemaker
Chronic lower extremity venous insufficiency/lymphedema
-Stable
Asthma/COPD/stable
Essential hypertension
Hypercholesterolemia
Anxiety/depression
History of subdural hematoma status post evacuation
Normal pressure hydrocephalus status post TIME CLOCK MECHANIC shunt
Carotid artery stenosis
Rheumatoid arthritis
m.
Postop urine retention noted
-Required single straight cath
-Now voiding
-Continue tamsulosin
Psoriasis
BPH
Full code
DVT prophylaxis�SCDs/Lovenox as per Ortho
Anticipated Discharge: Today
Subjective/Interval History
-
Date of Service: October 25, 2023
Finally moved his bowels this morning relates no discomfort mental clarity informed of results of CT voiding well
Objective Data
-
Labs:
Laboratory Results
10/25/23
05:31
WBC 10.2
Hgb 9.5 L
Hct 27.5 L
Plt Count 260
Sodium 135
Potassium 3.8
Chloride 106
Carbon Dioxide 28
BUN 14
Creatinine 0.6 L
Glucose 93
Calcium 8.0 L
Vital Signs:
Vital Signs
Temp Pulse Resp BP Pulse Ox
98.5 F 84 17 114/68 95
10/24/23 23:30 10/24/23 23:30 10/24/23 23:30 10/24/23 23:30 10/24/23 23:30
I&O
10/24/23 10/25/23 10/26/23
06:59 06:59 06:59
Intake Total 840 / 840 560 / 560
Output Total 700 / 700 450 / 450 950 / 950
Balance 140 / 140 110 / 110 -950 / -950
Review of Systems
-
All other systems: Not reviewed unless documented
Respiratory: Reports No Symptoms
Cardiac: Reports No Symptoms
Abdomen/GI: Reports No Symptoms and Constipated
Genitourinary: Reports No Symptoms
Physical Exam
-
General: Well Developed
HEENT: Normocephalic
Respiratory: Clear to Auscultation
Cardiac: Regular Rhythm
GI: Soft and Nontender
Neuro: Awake, Alert and Oriented
Data Reviewed
-
Total Time Spent with Patient (in minutes): 56
Diagnostic Radiology: Report Reviewed by me (CT scan shows no evidence of any issues with TIME CLOCK MECHANIC shunt well-positioned/white matter changes as noted in keeping with age)
Labs: Labs Reviewed by me (Hemoglobin stable and trending up at 9.5/all chemistries normal)
[2023-10-25] MEDS: PULMICORT 0.5 MG INH ×2 (08:34→18:47)
[2023-10-25] MEDS: DUONEB 3 ML INH ×2 (08:34→18:47)
[2023-10-25] MEDS: MIRALAX 17 GRAMS PO (09:56)
[2023-10-25] MEDS: WELLBUTRIN SR (12 hour sustained release) 150 MG PO (09:57)
[2023-10-25] MEDS: ASPIR LOW (ENTERIC COATED) 81 MG PO (09:57)
[2023-10-25] MEDS: FLOMAX 0.400000000000000022 MG PO (09:58)
[2023-10-25] MEDS: NORVASC 2.5 MG PO (09:58)
[2023-10-25] MEDS: COLACE 100 MG PO ×2 (09:58→21:13)
[2023-10-25] MEDS: OCUVITE SOFTGEL 1 CAP PO (09:59)
[2023-10-25] MEDS: LASIX 40 MG PO (09:59)
[2023-10-25] MEDS: LIPITOR 80 MG PO (09:59)
[2023-10-25] MEDS: FOLVITE 0.400000000000000022 MG PO (09:59)
[2023-10-25] MEDS: LOVENOX 30 MG SC (10:00)
[2023-10-25 11:00] VITALS: BP 152/71; PULSE 70; O2SAT 97
[2023-10-25 15:51] VITALS: BP 110/68
[2023-10-25] MEDS: TYLENOL 650 MG PO (18:21)
[2023-10-25] MEDS: REFRESH CELLUVISC GEL 1 DROPS BOTH EYES (21:13)
[2023-10-25 23:30] VITALS: BP 126/64
[2023-10-26 03:20] VITALS: BP 121/61
[2023-10-26 07:00] VITALS: BP 142/66
[2023-10-26] MEDS: DUONEB 3 ML INH ×2 (07:16→20:35)
[2023-10-26] MEDS: PULMICORT 0.5 MG INH ×2 (07:16→20:35)
[2023-10-26 08:20] VITALS: BMI 28.5
[2023-10-26] MEDS: FOLVITE 0.400000000000000022 MG PO (08:38)
[2023-10-26] MEDS: LOVENOX 30 MG SC (08:38)
[2023-10-26] MEDS: NORVASC 2.5 MG PO (08:38)
[2023-10-26] MEDS: LASIX 40 MG PO (08:38)
[2023-10-26] MEDS: MIRALAX 17 GRAMS PO (08:38)
[2023-10-26] MEDS: WELLBUTRIN SR (12 hour sustained release) 150 MG PO (08:38)
[2023-10-26] MEDS: OCUVITE SOFTGEL 1 CAP PO (08:38)
[2023-10-26] MEDS: COLACE 100 MG PO ×2 (08:38→21:54)
[2023-10-26] MEDS: ASPIR LOW (ENTERIC COATED) 81 MG PO (08:38)
[2023-10-26] MEDS: FLOMAX 0.400000000000000022 MG PO (08:39)
[2023-10-26] MEDS: LIPITOR 80 MG PO (08:39)
--- NOTE | 2023-10-26 10:13 | PTCARENOTE ---
pt aaox3. states no pain or sob. room air breath sounds clear. right hip dressings intact with some old bloody drainage. pulses present.
[2023-10-26] MEDS: TYLENOL 650 MG PO ×2 (10:44→21:53)
[2023-10-26] MEDS: NIZORAL 2% CREAM 1 APPLIC TOPICAL (11:14)
[2023-10-26 11:50] VITALS: BP 124/69; BP 83/62; PULSE 80; O2SAT 97
[2023-10-26 12:30] VITALS: BP 124/69; BP 125/72
[2023-10-26] MEDS: ULTRAM 50 MG PO (13:01)
[2023-10-26 14:22] LABS: Urine Albumin 3+ (Neg - Trace); Urine Bilirubin 1+ (Negative); Urine Character Slightly Cloudy (Clear); Urine Color Amber; Urine Glucose Negative (Negative); Urine Ketone Trace (Negative); Urine Leukocyte 2+ (Negative); Urine Nitrite Positive (Negative); Urine Occult Blood 4+ (Negative); Urine Urobilinogen 2+ (Neg - 1+)
--- NOTE | 2023-10-26 14:24 | W.PN.HOSP.TC ---
Today's Communication/Plan
-
UA with cx
DC planning
Assessment / Plan
Assessment / Plan
83-year-old male past medical history of bradycardia status post pacemaker, carotid artery stenosis, hypertension, asthma/COPD, hypercholesterolemia, depression, normal pressure hydrocephalus status post COUNSELING SPECIALIST shunt several years ago, subdural hematoma
status post evacuation in 2020, rheumatoid arthritis, psoriasis, BPH presenting after he was trying to ambulate with his cane outside and slipped on wet ground and fell onto his right side with pain. He denies hitting his head. Denied any
dizziness or chest pain or shortness of breath.
Patient normally has good functional status. He has chronic lower extremity edema which is stable. He recently had pulmonary issues with cough and shortness of breath and was treated with steroids and pulmonary symptoms are currently improved. He
saw ammonium hydroxide operator yesterday and pacemaker is functioning well. No history of heart failure or cardiac stents.
Drinks alcohol occasionally. He denies smoking.
# Right intertrochanteric hip fracture/status post ORIF
-Tylenol, Tramadol, and Dilaudid for pain as needed
-valium for muscle spasms
- CW PT/OT, DVT prophylaxis
Acute blood loss anemia
-Hemoglobin on presentation 12.3 now down to 9.3>> 9.5
-Continue to monitor hemodynamically stable
Hematuria - on gross urine exam
Post op urinary retentions
Hx of urinary incontinence
Today bladder scan without retention.
Check urinalysis with reflex culture.
CW Flomax.
History of bradycardia status post pacemaker
Chronic lower extremity venous insufficiency/lymphedema
-Stable
Asthma/COPD/stable
Essential hypertension
Hypercholesterolemia
Anxiety/depression
History of subdural hematoma status post evacuation
Normal pressure hydrocephalus status post COUNSELING SPECIALIST shunt
Carotid artery stenosis
Rheumatoid arthritis
Psoriasis
BPH
Full code
DVT prophylaxis�SCDs/Lovenox as per Ortho
Anticipated Discharge: Today
Subjective/Interval History
-
Date of Service: October 26, 2023
Right hip pain better with tramadol.
Family noticing blood in the urine. Patient denies any dysuria. He has longstanding history of incontinence. On Flomax for prostate issues. Had a bladder dysfunction when he had subdural hematoma. Postoperatively he had urinary retention
requiring straight cath.
Objective Data
-
Vital Signs:
Vital Signs
Temp Pulse Resp BP Pulse Ox
97.7 F 64 16 142/66 95
10/26/23 07:00 10/26/23 08:38 10/26/23 07:21 10/26/23 08:38 10/26/23 07:21
I&O
10/25/23 10/26/23 10/27/23
06:59 06:59 06:59
Intake Total 560 / 560 720 / 720
Output Total 450 / 450 1890 / 1890
Balance 110 / 110 -1170 / -1170
Review of Systems
-
Constitutional: Denies Fever
Respiratory: Denies Trouble Breathing
Cardiac: Denies Chest Pain
Abdomen/GI: Denies Nausea or Vomiting
Neuro: Denies Dizzy
Physical Exam
-
General: No Apparent Distress
HEENT: Moist Mucous Membranes
Respiratory: Clear to Auscultation
Cardiac: Regular Rhythm and S1/S2
GI: Soft
Neuro: AO x 3
Psych: Calm; Negative Confused
Data Reviewed
-
Labs: Labs Reviewed by me (pending)
[2023-10-26 14:30] LABS: Urine Squamous Cell 0-2 /LPF (Few)
--- NOTE | 2023-10-26 14:30 | CM ---
Addendum entered by Sarah Hassan 10/26/23 15:27:
Spoke with patient and daughter. Preference is [facility]. CM had previously checked bed availability with admissions. They do not anticipate an available bed until possibly late in the week. Patient and daughter agreed to [facility] if [facility]
does not have a bed on day of discharge.
Original Note:
Discharge Plan of Care: SNF. Referrals to [facility] and [facility] accepted. CM inquired whether they have available bed. Await response. Messaged MD for anticipated discharge date.
[2023-10-26 14:31] LABS: Urine Bacteria Many (Negative); Urine White Cell 16-20 /HPF (0-5)
[2023-10-26] MEDS: REFRESH CELLUVISC GEL 1 DROPS BOTH EYES (21:54)
[2023-10-26 22:43] VITALS: BP 131/65
[2023-10-27 06:00] VITALS: BMI 29.1
[2023-10-27 07:00] VITALS: BP 105/60
[2023-10-27] MEDS: MIRALAX 17 GRAMS PO (07:48)
[2023-10-27] MEDS: TYLENOL 650 MG PO (07:49)
[2023-10-27] MEDS: LASIX 40 MG PO (07:50)
[2023-10-27] MEDS: NORVASC 2.5 MG PO (07:50)
[2023-10-27] MEDS: WELLBUTRIN SR (12 hour sustained release) 150 MG PO (07:50)
[2023-10-27] MEDS: LIPITOR 80 MG PO (07:50)
[2023-10-27] MEDS: OCUVITE SOFTGEL 1 CAP PO (07:50)
[2023-10-27] MEDS: COLACE 100 MG PO (07:50)
[2023-10-27] MEDS: FLOMAX 0.400000000000000022 MG PO (07:50)
[2023-10-27] MEDS: ASPIR LOW (ENTERIC COATED) 81 MG PO (07:50)
[2023-10-27] MEDS: FOLVITE 0.400000000000000022 MG PO (07:50)
[2023-10-27] MEDS: LOVENOX 30 MG SC (07:50)
[2023-10-27] MEDS: NIZORAL SHAMPOO TOPICAL (07:51)
[2023-10-27] MEDS: DUONEB 3 ML INH (08:09)
[2023-10-27] MEDS: PULMICORT 0.5 MG INH (08:10)
--- NOTE | 2023-10-27 08:45 | W.PN.HOSP.TC ---
Today's Communication/Plan
-
dc
Assessment / Plan
Assessment / Plan
83-year-old male past medical history of bradycardia status post pacemaker, carotid artery stenosis, hypertension, asthma/COPD, hypercholesterolemia, depression, normal pressure hydrocephalus status post SPORTS REPORTER shunt several years ago, subdural hematoma
status post evacuation in 2020, rheumatoid arthritis, psoriasis, BPH presenting after he was trying to ambulate with his cane outside and slipped on wet ground and fell onto his right side with pain. He denies hitting his head. Denied any
dizziness or chest pain or shortness of breath.
Patient normally has good functional status. He has chronic lower extremity edema which is stable. He recently had pulmonary issues with cough and shortness of breath and was treated with steroids and pulmonary symptoms are currently improved. He
saw security consultant yesterday and pacemaker is functioning well. No history of heart failure or cardiac stents.
Drinks alcohol occasionally. He denies smoking.
# Right intertrochanteric hip fracture/status post ORIF
-Tylenol, Tramadol, and Dilaudid for pain as needed
-valium for muscle spasms
- CW PT/OT; DVT prophylaxis per ortho
Acute blood loss anemia
-Hemoglobin on presentation 12.3 now down to 9.3>> 9.5
- hemodynamically stable; HH stable
Hematuria - on gross urine exam
Post op urinary retentions
Hx of urinary incontinence
bladder scan without retention.
urinalysis with reflex culture- Proteus Mirabilis in urine
On ceftriaxone pending culture data.If he is going to rehab today will switch to oral Keflex and follow UCX data in next 24 hr
CW Flomax.
History of bradycardia status post pacemaker
Chronic lower extremity venous insufficiency/lymphedema
-Stable
Asthma/COPD/stable
Essential hypertension
Hypercholesterolemia
Anxiety/depression
History of subdural hematoma status post evacuation
Normal pressure hydrocephalus status post SPORTS REPORTER shunt
Carotid artery stenosis
Rheumatoid arthritis
Psoriasis
BPH
Full code
DVT prophylaxis�SCDs/Lovenox as per Ortho
Medically stable for DC to rehab
DW daughter Elida and updated the discharge plan.
More than 30 minutes spent in discharge including
Final examination of the patient
Summarizing hospital stay
Instructions for continuing care to all relevant caregivers
Preparation of discharge records, prescriptions, and referral forms
Total time spent (in minutes): 35
Anticipated Discharge: Today
Subjective/Interval History
-
Date of Service: October 27, 2023
Pain from right hip is okay-taking p.o. pain medications.
Denies any dysuria today. No frequency. Denies any fever or chills.
Thinks he is passing urine okay.
No nausea vomiting.
Objective Data
-
Vital Signs:
Vital Signs
Temp Pulse Resp BP Pulse Ox
97.6 F 79 19 105/60 93
10/27/23 07:00 10/27/23 08:12 10/27/23 08:12 10/27/23 07:00 10/27/23 08:12
I&O
10/26/23 10/27/23 10/28/23
06:59 06:59 06:59
Intake Total 720 / 720 240 / 240
Output Total 1890 / 1890 300 / 300
Balance -1170 / -1170 -60 / -60
Review of Systems
-
Respiratory: Denies Trouble Breathing
Cardiac: Denies Chest Pain
Neuro: Denies Dizzy
Physical Exam
-
General: No Apparent Distress
HEENT: Moist Mucous Membranes
Respiratory: Clear to Auscultation
Cardiac: Regular Rhythm and S1/S2; Negative Tachycardic
GI: Soft and Nontender
Neuro: AO x 3
Psych: Calm
Data Reviewed
-
Labs: Labs Reviewed by me
--- NOTE | 2023-10-27 09:01 | W.DS.TRANS ---
DC Summary - [employer]
-
Discharge Instructions:
Sleep Apnea Risk Low
Discharge Diagnosis/Procedures Right hip fracture status post ORIF
Transient urinary retention now resolved
Proteus mirabilis UTI
Diet 2 Gram Sodium,Low Cholesterol
Activity With Walker
Additional Activity Weightbearing right lower extremity with walker
Driving Restrictions No driving
Other Services PT,OT
Instructions:
Stand-Alone Forms:
Changes to Home Medications: Yes
Discharge Medications:
DC Medications w/original date entered in [employer]
acetaminophen 325 mg tablet 650 mg PO Q6H PRN mild pain/fever 10/21/23
amlodipine 2.5 mg tablet 2.5 mg PO DAILY 10/21/23
aspirin 81 mg tablet,delayed release 81 mg PO DAILY 10/21/23
atorvastatin 80 mg tablet 80 mg PO DAILY 10/21/23
budesonide 0.5 mg/2 mL suspension for nebulization 0.5 mg inhalation R BID 10/21/23
bupropion HCl 150 mg tablet,12 hr sustained-release 150 mg PO DAILY 10/21/23
carboxymethylcellulose sodium 0.5 % eye drops (Refresh Tears) 1 drp BOTH EYES HS 10/21/23
carboxymethylcellulose sodium 0.5 % eye drops (Refresh Tears) 1 drp BOTH EYES Q4H PRN dry eyes 10/21/23
econazole 1 % topical cream 1 applic topical DAILY PRN rash 10/21/23
folic acid 400 mcg tablet 0.4 mg PO DAILY 10/21/23
formoterol fumarate 20 mcg/2 mL solution for nebulization 2 ml inhalation R BID 10/21/23
furosemide 40 mg tablet 40 mg PO DAILY 10/21/23
ipratropium 0.5 mg-albuterol 3 mg (2.5 mg base)/3 mL nebulization soln 3 ml inhalation R BID 10/21/23
ipratropium 0.5 mg-albuterol 3 mg (2.5 mg base)/3 mL nebulization soln 3 ml inhalation R Q6 PRN wheezing 10/21/23
ketoconazole 2 % shampoo 1 applic topical TUFR 10/21/23
methotrexate sodium 2.5 mg tablet 15 mg PO TH 10/21/23
tamsulosin 0.4 mg capsule 0.4 mg PO DAILY 10/21/23
trolamine salicylate 10 % topical cream 1 applic topical Q6H PRN arthritis pain 10/21/23
vit C 250 mg-E 90 mg-zinc 40 mg-copper 1 [id number] chew tablet (PreserVision AREDS-2) 1 tab PO DAILY 10/21/23
docusate sodium 100 mg capsule 100 mg PO BID Constipation #30 caps 10/25/23
enoxaparin 30 mg/0.3 mL subcutaneous syringe 30 mg (0.3 mL) SC DAILY Blood clot prevention/tx #3 mL 10/25/23
polyethylene glycol 3350 17 gram oral powder packet (HealthyLax) 17 g PO DAILY #30 ea 10/25/23
cephalexin 500 mg capsule 500 mg PO QID #1 cap 10/27/23
tramadol 50 mg tablet 50 mg PO Q6HPRN PRN moderate pain #12 tabs 10/27/23
Home Medication Changes
New medication-tramadol, cephalexin, MiraLAX, Lovenox for 2 weeks followed by aspirin 325 mg daily for 4 more weeks
Pending Results: Yes (Urine culture sensitivities)
[2023-10-27] MEDS: STERILE WATER FOR INJECTION 10 ML IV (09:53)
[2023-10-27] MEDS: ROCEPHIN 1000 MG IV (09:54)
--- NOTE | 2023-10-27 11:02 | CM ---
Addendum entered by CHITO Mckeon 10/27/23 11:07:
report called to [phone]
fax [phone]
Original Note:
SPoke to Adriana at [facility]. She has bed today. Parul at [facility] does not have bed. Met with patient and dgtr. Both agree on transfer to [facility] today. Medical necessity on chart and transport form. IMM signed.
[2023-10-27] MEDS: ULTRAM 50 MG PO (12:17)
--- NOTE | 2023-10-27 16:30 | W.DCSUMMARY ---
Discharge Summary
Discharge Data
Date of Admission: 10/21/23
Date of Discharge: 10/27/23
-
Pending Results: No
Hospital Course
Primary diagnosis:
Right intertrochanteric hip fracture/status post open reduction internal fixation
Acute blood loss anemia-postop ;no indication for transfusion.
Proteus mirabilis urinary tract infection
Postop urinary retention
Secondary diagnosis:
History of bradycardia status post pacemaker
Chronic lower extremity venous insufficiency/lymphedema
Asthma/COPD
Essential hypertension
Hypercholesterolemia
Anxiety/depression
History of subdural hematoma status post evacuation
Normal pressure hydrocephalus status post TONGSMAN shunt
Carotid artery stenosis
Rheumatoid arthritis
Psoriasis
BPH
Hospital course:
Patient had a mechanical fall leading onto a right intertrochanteric hip fracture which was treated with ORIF. He had a blood loss anemia with a drop of hemoglobin from 12.3-9.5 but stabilized and not needed transfusion. Postoperatively he also
had a urinary retention and there was discovery of Proteus mirabilis UTI. He was initiated on antibiotics but his culture data was not back yet from the lab regarding the sensitivities. His antibiotics were switched to Keflex. He was not
retaining on the bladder scan and did not require Sawyer back again.
Was seen by PT who recommended rehab and was discharged to rehab.
Consultants on board:
Orthopedics-Dr. Albrecht
Discharge Plan
-
Patient Disposition: [facility]/SNF
Discharge Diagnosis/Procedures: Right hip fracture status post ORIF
Transient urinary retention now resolved
Proteus mirabilis UTI
Diet: Low Cholesterol and 2 Gram Sodium
Activity: With Walker
Additional Activity: Weightbearing right lower extremity with walker
Driving Restrictions: No driving
Other Services: PT and OT
Activity Restrictions/Additional Instructions:
Urine culture sensitivities pending
Referrals:
Rolly Albrecht MD [Active] - in two weeks
Sirisha Platt MD [Family Provider] -
Prescriptions:
New
polyethylene glycol 3350 [HealthyLax] 17 gram Powder In Packet
17 g PO DAILY Qty: 30 0RF
docusate sodium 100 mg Capsule
100 mg PO BID Qty: 30 0RF
enoxaparin 30 mg/0.3 mL Syringe
30 mg SC DAILY Qty: 3 0RF
Rx Instructions:
For 2 weeks followed by 325 mg aspirin for 3 additional weeks
tramadol 50 mg Tablet
50 mg PO Q6HPRN PRN (Reason: moderate pain) Qty: 12 0RF
cephalexin 500 mg capsule
500 mg PO QID Qty: 1 0RF
Rx Instructions:
For another 4 days ; change abx depending on final culture data.
Continued
furosemide 40 mg Tablet
40 mg PO DAILY
bupropion HCl 150 mg Tablet Sustained-Release 12 Hr
150 mg PO DAILY
atorvastatin 80 mg Tablet
80 mg PO DAILY
acetaminophen 325 mg Tablet
650 mg PO Q6H PRN (Reason: mild pain/fever)
ipratropium-albuterol 0.5 mg-3 mg(2.5 mg base)/3 mL solution for nebulization
3 ml INHALATION R Q6 PRN (Reason: wheezing)
ipratropium-albuterol 0.5 mg-3 mg(2.5 mg base)/3 mL solution for nebulization
3 ml INHALATION R BID
ketoconazole 2 % Shampoo
1 applic TOPICAL TUFR
amlodipine 2.5 mg Tablet
2.5 mg PO DAILY
folic acid 400 mcg Tablet
0.4 mg PO DAILY
aspirin 81 mg Tablet,Delayed Release (Dr/Ec)
81 mg PO DAILY
methotrexate sodium 2.5 mg Tablet
15 mg PO TH
tamsulosin 0.4 mg Capsule
0.4 mg PO DAILY
carboxymethylcellulose sodium [Refresh Tears] 0.5 % Drops
1 drp BOTH EYES HS
carboxymethylcellulose sodium [Refresh Tears] 0.5 % Drops
1 drp BOTH EYES Q4H PRN (Reason: dry eyes)
econazole 1 % Cream
1 applic TOPICAL DAILY PRN (Reason: rash)
budesonide 0.5 mg/2 mL suspension for nebulization
0.5 mg inhalation R BID
trolamine salicylate 10 % Cream
1 applic TOPICAL Q6H PRN (Reason: arthritis pain)
formoterol fumarate 20 mcg/2 mL solution for nebulization
2 ml INHALATION R BID
PreserVision AREDS-2 250-90-40-1 mg Tablet,Chewable
1 tab PO DAILY
Discharge Orders:
Discharge Patient (As Directed); Ordered 10/27/23
Ordered By: Antony Bagley
Discharge Date and Time
Discharge Date/Time: 10/27/23 13:25
Print Language: [place]
== END 2023-10-27 13:25 | DRG 481 ==
LOC: 2 SOUTH 17:32
PROVIDERS: Internal Medicine; Nurse Practitioner Gerontology; Physician Assistant; ADMITTING PHYSICIAN Hospitalist; ATTENDING PHYSICIAN Internal Medicine; EMERGENCY PHYSICIAN Emergency Medicine; FAMILY PHYSICIAN Internal Medicine; OTHER PHYSICIAN Orthopaedic Surgery Hand Surgery
PROC: 0QS604Z Reposition Right Upper Femur with Internal Fixation Device, Open Approach (ICD-10-PCS; 2023-10-22)
DX: S72.141A Displaced intertrochanteric fracture of right femur, initial encounter for closed fracture (principal); D62 Acute posthemorrhagic anemia; N39.0 Urinary tract infection, site not specified; G91.2 (Idiopathic) normal pressure hydrocephalus; W18.39XA Other fall on same level, initial encounter; B96.4 Proteus (mirabilis) (morganii) as the cause of diseases classified elsewhere; E78.00 Pure hypercholesterolemia, unspecified; I10 Essential (primary) hypertension; J44.9 Chronic obstructive pulmonary disease, unspecified; M06.9 Rheumatoid arthritis, unspecified; N40.0 Benign prostatic hyperplasia without lower urinary tract symptoms; Z95.0 Presence of cardiac pacemaker; Z98.2 Presence of cerebrospinal fluid drainage device
CPT/HCPCS: 70450; 73502; 76000; 80048; 80053; 81003; 81015; 85014; 85018; 85025; 85027; 85610; 85730; 86850; 86900; 86901; 87070; 87086; 87088; 87186; 94640; 96374; 96375; 96376; 97110; 97116; 97163; 97166; 97535; 99284; C1713; C1769

== ENCOUNTER → 2023-11-06 11:24 | Outpatient (REF) | payer OTHER, MEDICARE, BC, SELFPAY ==
[2023-11-06 11:52] LABS: % Basophils 0.5 % (0-2); % Eosinophils 5.5 % (0-6); % Lymphocytes 23.7 % (20.5-51.1); % Monocytes 8.8 % (1.7-9.3); % Neutrophils 60.5 % (42.2-75.2); Absolute Eosinophils 0.5 10^3/uL (0-0.7); Absolute Immature Granulocytes 0.1 10^3/uL (0-0.05); Absolute Lymphocytes 1.9 10^3/uL (1.2-3.4); Absolute Monocytes 0.7 10^3/uL (0.1-0.6); Hemoglobin 8.7 g/dL (13.0-18.0); Mean Corp Hgb Conc. 32.2 g/dL (33.0-37.0); Mean Corpuscular Hgb 31.2 pg (27.0-31.0); Mean Corpuscular Volume 96.8 fL (80.0-94.0); Mean Platelet Volume 9.7 fL (7.4-10.4); Nucleated Red Blood Cells % 0 % (-); Platelet Count 355 10^3/uL (130-400); Red Blood Cell Count 2.79 10^6/uL (4.70-6.10); Red Cell Dist. Width 15.9 % (11.5-14.5); White Blood Cell Count 8.2 10^3/uL (4.8-10.8)
[2023-11-06 12:27] LABS: Blood Urea Nitrogen 21 mg/dl (9-20); Carbon Dioxide 29 mmol/L (22-30); eGFR > 60.00
[2023-11-06 12:37] LABS: Calcium 8.6 mg/dl (8.4-10.2); Chloride 102 mmol/L (98-107); Glucose 89 mg/dl (70-99); Potassium 4.3 mmol/L (3.5-5.1); Sodium 134 mmol/L (135-145)
== END ==
LOC: OLABP 11:24
PROVIDERS: ATTENDING PHYSICIAN Student in an Organized Health Care Education/Training Program
DX: D62 Acute posthemorrhagic anemia (principal); N39.0 Urinary tract infection, site not specified; J44.9 Chronic obstructive pulmonary disease, unspecified; I50.9 Heart failure, unspecified; I11.0 Hypertensive heart disease with heart failure
CPT/HCPCS: 36415; 80048; 85025

== ENCOUNTER → 2023-11-09 16:18 | Outpatient (REF) | payer OTHER, MEDICARE, BC, SELFPAY ==
[2023-11-09 17:42] LABS: Hematocrit 29.4 % (39.0-52.0); Hemoglobin 9.4 g/dL (13.0-18.0); Mean Corpuscular Hgb 31.1 pg (27.0-31.0); Mean Corpuscular Volume 97.4 fL (80.0-94.0); Mean Platelet Volume 10.1 fL (7.4-10.4); Platelet Count 392 10^3/uL (130-400); Red Blood Cell Count 3.02 10^6/uL (4.70-6.10); Red Cell Dist. Width 15.9 % (11.5-14.5); White Blood Cell Count 10.4 10^3/uL (4.8-10.8)
[2023-11-09 17:48] LABS: Urine Albumin Negative (Neg - Trace); Urine Bilirubin Negative (Negative); Urine Character Clear (Clear); Urine Color Yellow; Urine Glucose Negative (Negative); Urine Ketone Negative (Negative); Urine Leukocyte Negative (Negative); Urine Nitrite Negative (Negative); Urine Occult Blood Negative (Negative); Urine Urobilinogen Negative (Neg - 1+)
[2023-11-09 17:52] LABS: ALT (SGPT) 28 U/L (0-50); AST (SGOT) 23 U/L (17-59); Albumin 3.1 g/dl (3.5-5.0); Alkaline Phosphatase 152 U/L (38-126); Blood Urea Nitrogen 14 mg/dl (9-20); Calcium 8.7 mg/dl (8.4-10.2); Carbon Dioxide 28 mmol/L (22-30); Chloride 100 mmol/L (98-107); Glucose 89 mg/dl (70-99); Potassium 3.9 mmol/L (3.5-5.1); Sodium 134 mmol/L (135-145); Total Protein 5.4 g/dl (6.3-8.2); eGFR > 60.00
== END ==
LOC: OLABP 16:18
PROVIDERS: ATTENDING PHYSICIAN Student in an Organized Health Care Education/Training Program
DX: D62 Acute posthemorrhagic anemia (principal); I50.9 Heart failure, unspecified; I11.0 Hypertensive heart disease with heart failure; N39.0 Urinary tract infection, site not specified
CPT/HCPCS: 80053; 81003; 85027

== ENCOUNTER 2023-12-21 06:32 | Day surgery (SDC) | payer MEDICARE, BC, SELFPAY ==
[2023-12-21 09:48] VITALS: BMI 23.4
[2023-12-21 09:49] VITALS: BMI 23.4
[2023-12-21 09:50] VITALS: BP 150/76
[2023-12-21 10:57] VITALS: BP 131/70
[2023-12-21 11:00] VITALS: BP 128/68
[2023-12-21 11:15] VITALS: BP 130/74
== END 2023-12-21 11:35 | disposition home or self-care (01) ==
LOC: SDS 06:32
PROVIDERS: ATTENDING PHYSICIAN Internal Medicine Gastroenterology
DX: Q39.9 Congenital malformation of esophagus, unspecified (principal); R13.10 Dysphagia, unspecified
CPT/HCPCS: 43235

== ENCOUNTER 2024-01-12 14:06 | Emergency (ER) | payer MEDICARE, BC, SELFPAY ==
[2024-01-12 14:08] VITALS: BP 146/66
--- NOTE | 2024-01-12 15:40 | ED.SKININJ ---
HPI-Injury
General
Chief Complaint: Skin Problem
Source: patient
Exam Limitations: none
Time Seen by Provider: 01/12/24 15:25
Nursing documentation reviewed up to this point in time: agreed with
History of Present Illness-Injury
Is this injury a work related problem?: No
Is pt an associate of [facility]?: No
Initial Injury comments:
Patient to ED for eval of redness and drainage form left jaw. Symptoms started 4 days ago. He was started on Keflex last PM, he has had 2 doses. Daughter reports erythema is expanding. No fever/chills, no swelling. Brought to ED by daughter for
eval.
Past History
Past History
ED Past Medical History: CHF, COPD, HTN, Hypercholesterolemia, Psychiatric (depression) and Other (Normal pressure hydrocephalus, RA, psoriasis, BPH)
ED Past Surgical History: Cardiac (pacemaker) and Other (STEREO COMPILER shunt, pacemaker)
Social History
Tobacco: Former smoker
Alcohol: None
Drug: None
Personal:
Living: with family
Review of Systems
Review of Systems
Allergies reviewed?: Yes
All Other Systems: ROS reviewed and negative except as documented in HPI and ROS
Constitutional: Reports no symptoms
EENT: Reports no symptoms
Respiratory: Reports no symptoms
Cardiac: Reports no symptoms
ABD/GI: Reports no symptoms
Musculoskeletal: Reports no symptoms
Skin: Reports other (draining abscess left jaw)
Neurological: Reports no symptoms
Psychiatric: Reports no symptoms
Skin Exam
Abscess
Left Jaw:
Description of abscess: draining
Surrounding skin:: reddened around abscess
Phy Exam
General Physical Exam
General Presentation: well appearing and no apparent distress
General age: appears stated age
General Skin: warm and dry
General Habitus: normal
General Mental: alert
Musculoskeletal Exam
Musculoskeletal Exam: neuro vasc intact
Skin Exam
Skin Exam: other (erythema and small amt purulent drainage from left jaw. Thick crusting removed and now draining freely. No swelling. Wound culture obtained.)
Psychiatric Exam
Psychiatric Exam: normal mood/affect
Course
Orders/Labs/Results
Orders:
Orders
01/12/24 15:35
Wound Culture [Wound/Abscess/Other Culture] Urgent
SANDOR Source: Face
Specimen Description: Left
Date Specimen was Collected: 01/12/24
Time Specimen was Collected: 15:36
CeFAZolin 1 GRAM [Ancef] 1 gram in 5 ml IV NOW
Vital Signs
Initial and Last Documented VS:
Initial Vital Signs
Temp Pulse Resp BP Pulse Ox
98.0 F 65 18 146/66 100
01/12/24 14:08 01/12/24 14:08 01/12/24 14:08 01/12/24 14:08 01/12/24 14:08
Last Documented Vital Signs
Temp Pulse Resp BP Pulse Ox
98.0 F 65 18 146/66 100
01/12/24 14:08 01/12/24 14:08 01/12/24 14:08 01/12/24 14:08 01/12/24 14:08
*Critical Care Note
Total Time (30-74mins, 75-104mins- exclusive of procedures): Not Applicable
Update Note
Update Note:
Patient started on Keflex BID yesterday for cellulitis. Erythema is expainding. THick crust removed and is now draining freely purulent drainage. Culture obtained. No swelling at site. Given dose of IV ancef in dept. Recommend increasing Keflex
to QID, adding warm compresses. Culture results are pending. Daughter given instructions on s/s to return to ED and she is agreeable to plan.
ED Attending Note
-
Portions of this chart may have been created with voice recognition software.� Occasional wrong word or��sound alike� substitutions may have occurred due to the inherent limitations of voice recognition software.
Discharge Plan
Departure
Patient Disposition: Home (Routine Discharge)
Date of Disposition: 01/12/24
Time of Disposition: 15:36
Patient with high blood pressure during this ER visit?: No
Condition: Good
Covid-19: Not Applicable
Discharge Problem:
Abscess
Instructions: Wound Care (DC), Skin Abscess
Prescriptions:
New
cephalexin 500 mg capsule
500 mg PO QID 7 Days Qty: 28 0RF
No Action
furosemide 40 mg Tablet
40 mg PO DAILY
bupropion HCl 150 mg Tablet Sustained-Release 12 Hr
150 mg PO DAILY
atorvastatin 80 mg Tablet
80 mg PO DAILY
acetaminophen 325 mg Tablet
650 mg PO Q6H PRN (Reason: mild pain/fever)
ipratropium-albuterol 0.5 mg-3 mg(2.5 mg base)/3 mL solution for nebulization
3 ml INHALATION R Q6 PRN (Reason: wheezing)
ipratropium-albuterol 0.5 mg-3 mg(2.5 mg base)/3 mL solution for nebulization
3 ml INHALATION R BID
ketoconazole 2 % Shampoo
1 applic TOPICAL TUFR
amlodipine 2.5 mg Tablet
2.5 mg PO DAILY
folic acid 400 mcg Tablet
0.4 mg PO DAILY
aspirin 81 mg Tablet,Delayed Release (Dr/Ec)
81 mg PO DAILY
methotrexate sodium 2.5 mg Tablet
15 mg PO TH
tamsulosin 0.4 mg Capsule
0.4 mg PO DAILY
carboxymethylcellulose sodium [Refresh Tears] 0.5 % Drops
1 drp BOTH EYES HS
carboxymethylcellulose sodium [Refresh Tears] 0.5 % Drops
1 drp BOTH EYES Q4H PRN (Reason: dry eyes)
econazole 1 % Cream
1 applic TOPICAL DAILY PRN (Reason: rash)
budesonide 0.5 mg/2 mL suspension for nebulization
0.5 mg inhalation R BID
trolamine salicylate 10 % Cream
1 applic TOPICAL Q6H PRN (Reason: arthritis pain)
formoterol fumarate 20 mcg/2 mL solution for nebulization
2 ml INHALATION R BID
PreserVision AREDS-2 250-90-40-1 mg Tablet,Chewable
1 tab PO DAILY
polyethylene glycol 3350 [HealthyLax] 17 gram Powder In Packet
17 g PO DAILY Qty: 30 0RF
docusate sodium 100 mg Capsule
100 mg PO BID Qty: 30 0RF
enoxaparin 30 mg/0.3 mL Syringe
30 mg SC DAILY Qty: 3 0RF
Rx Instructions:
For 2 weeks followed by 325 mg aspirin for 3 additional weeks
tramadol 50 mg Tablet
50 mg PO Q6HPRN PRN (Reason: moderate pain) Qty: 12 0RF
cephalexin 500 mg capsule
500 mg PO QID Qty: 1 0RF
Rx Instructions:
For another 4 days ; change abx depending on final culture data.
ipratropium-albuterol [DuoNeb] 0.5 mg-3 mg(2.5 mg base)/3 mL Solution For Nebulization
3 ml INHALATION Q4H PRN (Reason: sob\\)
oxycodone 5 mg Tablet
5 mg PO Q8H PRN (Reason: pain)
Activity Restrictions/Additional Instructions:
Increase Keflex to 500mg every 6 hours. Warm compresses to abscess site 15-20 minutes at a time, 4-5 times daily. Return to the emergency department immediately for fever/chills, increasing pain/redness/swelling to face, or for any further
concerns.
Interventions
Interventions:
*Risk Screen - Suicide Last Done: 01/12/24 15:41
*General Assessment Last Done: 01/12/24 15:41
*Neglect/Abuse Screening Last Done: 01/12/24 15:41
ED- Fall Risk Assessment Last Done: 01/12/24 15:41
ED-Skin Assessment Last Done: 01/12/24 15:39
Discharge Date and Time
Print Language: HEBREW
[2024-01-12 15:44] VITALS: BMI 26.7
[2024-01-12] MEDS: ANCEF 5 IV (16:07)
[2024-01-12 16:26] VITALS: BP 135/88
== END 2024-01-12 16:28 | disposition home or self-care (01) ==
LOC: EMR 14:06
PROVIDERS: EMERGENCY PHYSICIAN Emergency Medicine; FAMILY PHYSICIAN Internal Medicine
DX: L02.01 Cutaneous abscess of face (principal); I11.0 Hypertensive heart disease with heart failure; I50.9 Heart failure, unspecified; E78.00 Pure hypercholesterolemia, unspecified; J44.9 Chronic obstructive pulmonary disease, unspecified; F32.A Depression, unspecified; M06.9 Rheumatoid arthritis, unspecified; L40.9 Psoriasis, unspecified; N40.0 Benign prostatic hyperplasia without lower urinary tract symptoms; Z95.0 Presence of cardiac pacemaker; Z98.2 Presence of cerebrospinal fluid drainage device; Z85.89 Personal history of malignant neoplasm of other organs and systems; Z87.891 Personal history of nicotine dependence; Z79.82 Long term (current) use of aspirin; Z88.1 Allergy status to other antibiotic agents; Z88.2 Allergy status to sulfonamides; Z88.8 Allergy status to other drugs, medicaments and biological substances
CPT/HCPCS: 99284; 96374; 87070; 87205

== ENCOUNTER → 2024-02-26 12:24 | Outpatient (REF) | payer MEDICARE, BC, SELFPAY | LOC: WOUND 12:24 | PROVIDERS: ATTENDING PHYSICIAN Surgery; FAMILY PHYSICIAN Internal Medicine | DX: L02.01 Cutaneous abscess of face (principal); L59.8 Other specified disorders of the skin and subcutaneous tissue related to radiation; Y84.2 Radiological procedure and radiotherapy as the cause of abnormal reaction of the patient, or of later complication, without mention of misadventure at the time of the procedure; Z85.828 Personal history of other malignant neoplasm of skin; Z87.891 Personal history of nicotine dependence; Z87.09 Personal history of other diseases of the respiratory system | CPT/HCPCS: 99203 ==

== ENCOUNTER 2024-03-25 18:12 | Emergency (ER) | payer MEDICARE, BC, SELFPAY ==
[2024-03-25 18:14] VITALS: BP 143/75
--- NOTE | 2024-03-25 21:01 | ED.GENMED ---
History of Present Illness
General
Chief Complaint: Swelling
Time Seen by Provider: 03/25/24 20:28
History of Present Illness
History of Present Illness:
83-year-old male with prior history of throat cancer status postresection presenting to the emergency department for right shoulder pain. Patient arrives with daughter and granddaughter who note that last night he was complaining of pain to the
right scapular region. Patient denies any trauma. Denies any numbness or tingling to his extremity. He is recovering from herpes zoster on that side. Denies any chest pain or difficulty breathing. Prior to arrival, had an acute worsening of
pain. Did not take any medications for pain prior to arrival. Denies any fever. Denies additional acute medical complaints
Past History
Past History
ED Past Medical History: CHF, COPD, HTN, Hypercholesterolemia, Psychiatric (depression) and Other (Normal pressure hydrocephalus, RA, psoriasis, BPH)
ED Past Surgical History: Cardiac (pacemaker) and Other (PRINT FINISHER shunt, pacemaker)
Social History
Tobacco: Former smoker
Alcohol: None
Drug: None
Personal:
Living: with family
Phy Exam
Physical Exam
Physical Exam:
General: Well-appearing, no clinical signs of dehydration, nontoxic and in no acute distress
HEENT: protecting airway, evidence of prior left-sided facial surgery
Neck: appears supple
CV: Normal heart rate, regular rhythm
Resp: No accessory muscle use, no increased work of breathing, lungs clear to auscultation bilaterally
Abd: Nondistended
Extremities: No deformity or swelling to the right upper extremity. Range of motion intact with abduction and adduction. Sensation and pulses intact. No reproducible tenderness to the right scapular region. Evidence of healing zoster to the
right flank
Neuro: alert, no focal neurologic deficit
: deferred
Rectal: deferred
Psych: Normal affect
Skin: Intact
Scores
Heart Failure Risk
Heart Failure Risk Score: Not Applicable
Course
Orders/Labs/Results
Orders:
Orders
03/25/24 18:16
Shoulder, Right 2 Views [CR Shoulder - Right Min 2 View] Urgent
Comment:
Reason For Exam: pain
03/25/24 20:51
Electrocardiogram (*1) Urgent
Reason for Study: Other
Other Reason for Exam: back pain
EKG- Treatment ONCE
03/25/24 21:16
Lidocaine [Lidocaine 4% Patch] 1 patch .ROUTE .STK-MED ONE
03/26/24 08:00
Lidocaine [Lidocaine 4% Patch] 1 patch TOPICAL DAILY
Apply Lidocaine patch(s) to:: right back
Lidocaine [Lidocaine 4% Patch] 1 patch TOPICAL DAILY
Apply Lidocaine patch(s) to:: right scapula
Vital Signs
Initial and Last Documented VS:
Initial Vital Signs
Temp Pulse Resp BP Pulse Ox
98.4 F 60 16 143/75 96
03/25/24 18:14 03/25/24 18:14 03/25/24 18:14 03/25/24 18:14 03/25/24 18:14
Last Documented Vital Signs
Temp Pulse Resp BP Pulse Ox
98.4 F 61 18 163/83 98
03/25/24 18:14 03/25/24 21:27 03/25/24 21:27 03/25/24 21:27 03/25/24 21:27
MDM/Problems Addressed
MDM/Problems Addressed:
83-year-old male presenting to the emergency department for right scapular pain. Vital signs on arrival are normal.
On exam patient is well-appearing, no acute distress or discomfort. Patient reports that his pain is currently gone, unable to reproduce on exam. When pointing to where his pain is, points to area of zoster. Suspect referred pain. X-ray obtained
of the right shoulder, no fracture or malalignment. No neurovascular compromise to the extremity. No infectious findings to the extremity or acute rashes or skin changes. Patient denying any chest pain, lower suspicion for ACS. Will screen with
EKG.
21:00 - EKG shows atrial paced rhythm. No acute ischemic abnormality. At this time feel stable for discharge with continued outpatient supportive therapy. Will prescribe lidocaine patches. Return precautions discussed and patient verbalized
understanding
*EKG
Interpreted by ED Provider?: Yes
EKG Intrepretation Date: 03/25/24
EKG Intrepretation Time: 21:05
Interpretation: normal
Comparison EKG: no changes
Heart Rate: 60
Rate: normal
Rhythm: other (atrial paced)
[place]: normal axis
Interval: normal interval
QRS Pattern: normal QRS
Ischemia: no ischemia
*Critical Care Note
Total Time (30-74mins, 75-104mins- exclusive of procedures): Not Applicable
ED Attending Note
-
Portions of this chart may have been created with voice recognition software.� Occasional wrong word or��sound alike� substitutions may have occurred due to the inherent limitations of voice recognition software.
Discharge Plan
Departure
Patient Disposition: Home (Routine Discharge)
Date of Disposition: 03/25/24
Time of Disposition: 21:06
Patient with high blood pressure during this ER visit?: No
Discharge Problem:
Acute pain of right shoulder
Instructions: Shoulder Rehab Exercises, Phase 1, Shoulder Pain ED
Prescriptions:
New
lidocain-me.xakdvjm-[id number]-xsnma 4-20-0.025-5 % adhesive patch,medicated
1 patch topical [id number] PRN (Reason: back pain) Qty: 10 0RF
No Action
furosemide 40 mg Tablet
40 mg PO DAILY
bupropion HCl 150 mg Tablet Sustained-Release 12 Hr
150 mg PO DAILY
atorvastatin 80 mg Tablet
80 mg PO DAILY
acetaminophen 325 mg Tablet
650 mg PO Q6H PRN (Reason: mild pain/fever)
ipratropium-albuterol 0.5 mg-3 mg(2.5 mg base)/3 mL solution for nebulization
3 ml INHALATION R Q6 PRN (Reason: wheezing)
ipratropium-albuterol 0.5 mg-3 mg(2.5 mg base)/3 mL solution for nebulization
3 ml INHALATION R BID
ketoconazole 2 % Shampoo
1 applic TOPICAL TUFR
amlodipine 2.5 mg Tablet
2.5 mg PO DAILY
folic acid 400 mcg Tablet
0.4 mg PO DAILY
aspirin 81 mg Tablet,Delayed Release (Dr/Ec)
81 mg PO DAILY
methotrexate sodium 2.5 mg Tablet
15 mg PO TH
tamsulosin 0.4 mg Capsule
0.4 mg PO DAILY
carboxymethylcellulose sodium [Refresh Tears] 0.5 % Drops
1 drp BOTH EYES HS
carboxymethylcellulose sodium [Refresh Tears] 0.5 % Drops
1 drp BOTH EYES Q4H PRN (Reason: dry eyes)
econazole 1 % Cream
1 applic TOPICAL DAILY PRN (Reason: rash)
budesonide 0.5 mg/2 mL suspension for nebulization
0.5 mg inhalation R BID
trolamine salicylate 10 % Cream
1 applic TOPICAL Q6H PRN (Reason: arthritis pain)
formoterol fumarate 20 mcg/2 mL solution for nebulization
2 ml INHALATION R BID
PreserVision AREDS-2 250-90-40-1 mg Tablet,Chewable
1 tab PO DAILY
polyethylene glycol 3350 [HealthyLax] 17 gram Powder In Packet
17 g PO DAILY Qty: 30 0RF
docusate sodium 100 mg Capsule
100 mg PO BID Qty: 30 0RF
enoxaparin 30 mg/0.3 mL Syringe
30 mg SC DAILY Qty: 3 0RF
Rx Instructions:
For 2 weeks followed by 325 mg aspirin for 3 additional weeks
tramadol 50 mg Tablet
50 mg PO Q6HPRN PRN (Reason: moderate pain) Qty: 12 0RF
cephalexin 500 mg capsule
500 mg PO QID Qty: 1 0RF
Rx Instructions:
For another 4 days ; change abx depending on final culture data.
ipratropium-albuterol [DuoNeb] 0.5 mg-3 mg(2.5 mg base)/3 mL Solution For Nebulization
3 ml INHALATION Q4H PRN (Reason: sob\\)
oxycodone 5 mg Tablet
5 mg PO Q8H PRN (Reason: pain)
cephalexin 500 mg capsule
500 mg PO QID 7 Days Qty: 28 0RF
Activity Restrictions/Additional Instructions:
You were seen in the emergency department for shoulder pain
You were found to have normal x-ray of your shoulder
Please follow-up closely with your primary care physician.
Return to the emergency department for any worsening of your symptoms including increased pain, numbness or tingling to your arm, swelling to your arm or inability to move your arm, or any development of chest pain, difficulty breathing, abdominal
pain with persistent vomiting and inability to tolerate food or liquid by mouth (concern for dehydration), weakness, headache or confusion, fever greater than 100.4, or any additional symptoms that are concerning to you.
Thank you for choosing [facility].
Interventions
Interventions:
*Risk Screen - Suicide Last Done: 03/25/24 18:14
*Nursing Disposition Last Done: 03/25/24 21:35
ED- Cardiac Assessment Last Done: 03/25/24 21:34
ED-Skin Assessment Last Done: 03/25/24 20:54
Discharge Date and Time
Discharge Date/Time: 03/25/24 21:36
Print Language: SURINAMESE
[2024-03-25] MEDS: LIDOCAINE 4% PATCH 1 PATCH TOPICAL (21:22)
[2024-03-25 21:27] VITALS: BP 163/83
== END 2024-03-25 21:36 | disposition home or self-care (01) ==
LOC: EMR 18:12
PROVIDERS: EMERGENCY PHYSICIAN Student in an Organized Health Care Education/Training Program
DX: M25.511 Pain in right shoulder (principal)
CPT/HCPCS: 99284; 73030; 93005

== ENCOUNTER → 2024-04-01 16:14 | Outpatient (REF) | payer MEDICARE, BC, SELFPAY | LOC: RAD 16:14 | PROVIDERS: ATTENDING PHYSICIAN Otolaryngology; FAMILY PHYSICIAN Internal Medicine | DX: M27.2 Inflammatory conditions of jaws (principal); L03.211 Cellulitis of face | CPT/HCPCS: 70491; Q9967 ==

== ENCOUNTER 2024-10-26 08:16 | Emergency (ER) | payer MEDICARE, BC, SELFPAY ==
--- NOTE | 2024-10-26 08:32 | ED.GENMED ---
History of Present Illness
General
Chief Complaint: Fall
Source: patient
Exam Limitations: none
Time Seen by Provider: 10/26/24 08:20
History of Present Illness
History of Present Illness:
84yoM with a history of CHF, COPD, SEWER PIPE LAYER shunt, and prior throat cancer s/p resection presenting via EMS for evaluation after a fall about 2 hours ago. Patient was trying to get out of bed this morning to use the bathroom. He states he lost his
balance and fell. He struck his head on the night stand and subsequently fell to the ground. There was no loss of consciousness. Patient was unable to get off the ground after the fall and was on the ground for about an hour total. He currently
complains of some right shoulder pain and right rib pain as well as a mild headache. He arrives with a cervical collar in place although denies any neck pain. He denies any nausea, vomiting, dizziness, chest pain, shortness of breath, fevers. He
takes a baby aspirin daily. He ambulates with a walker at baseline.
Past History
Past History
ED Past Medical History: CHF, COPD, HTN, Hypercholesterolemia, Psychiatric (depression) and Other (Normal pressure hydrocephalus, RA, psoriasis, BPH)
ED Past Surgical History: Cardiac (pacemaker) and Other (SEWER PIPE LAYER shunt, pacemaker)
Social History
Tobacco: Former smoker
Alcohol: None
Drug: None
Personal:
Living: with family
Phy Exam
General Physical Exam
General Presentation: well appearing and no apparent distress
General age: appears stated age
General Skin: warm and dry
General Habitus: elderly
General Mental: alert
ENT Exam
ENT Exam: other (Prior mandibular resection noted. No external signs of head trauma. )
Eye Exam
Eye Exam: PERRL
Cardiovascular Exam
Cardiovascular Exam: regular rate/rhythm
Pulmonary Exam
Pulmonary Exam: lungs clear, no respiratory distress, no rales, no crackles, no rhonchi and other (Mild tenderness to R anterior lower ribcage. No ecchymosis or crepitus. Bilateral breath sounds equal.)
Gastrointestinal Exam
Gastrointestinal Exam: non tender, soft and non distended
Neurological Exam
Neurological Exam: alert
[place] Coma Scale
Eye Opening: Spontaneous
Verbal Response: Oriented
Motor Response: Obeys Commands
GCS Total Score: 15
Musculoskeletal Exam
Musculoskeletal Exam: other (R shoulder: No deformity noted. +Generalized tenderness to palpation. ROM mildly decreased although he states this is baseline due to his arthritis. 2+ radial pulse and sensation intact. )
Skin Exam
Skin Exam: warm/dry
Psychiatric Exam
Psychiatric Exam: normal mood/affect
Course
Orders/Labs/Results
Orders:
Orders
10/26/24 08:32
CT Cervical Spine W/o Iv Contr Urgent
Comment:
Reason For Exam: fall, head injury
CT Head W/o Iv Contrast Urgent
Comment:
Reason For Exam: fall, head injury
CR Ribs-right 3 Vw W/pa Chest* Urgent
Comment:
Reason For Exam: fall, R lower rib pain
CR Shoulder - Right Min 2 View Urgent
Comment:
Reason For Exam: fall
10/26/24 10:46
Acetaminophen [Tylenol] 1,000 mg PO NOW STA
Nursing to Place Non Medication Order As Directed
Physician Order: ambulation trial
Above order entered?: Yes
Vital Signs
Initial and Last Documented VS:
Initial Vital Signs
Temp Pulse Resp Pulse Ox
97.5 F 60 16 100
10/26/24 08:19 10/26/24 08:19 10/26/24 08:19 10/26/24 08:19
Last Documented Vital Signs
Temp Pulse Resp BP Pulse Ox
97.5 F 60 16 173/81 98
10/26/24 08:19 10/26/24 08:19 10/26/24 08:19 10/26/24 10:04 10/26/24 10:04
MDM/Problems Addressed
Differential Diagnosis Includes:
84yoM here after a fall while getting out of bed this morning. Hit head against night stand. No LOC. C/o R shoulder pain and R rib pain. He is awake, alert, with a GCS of 15. No external signs of head trauma noted. Differential diagnosis includes
but is not limited to: closed head injury, intracranial hemorrhage, fracture
Initial ED plan: Check CT head, CT cervical spine, R shoulder x-rays, and R rib series x-rays. He declines analgesics.
*Critical Care Note
Total Time (30-74mins, 75-104mins- exclusive of procedures): Not Applicable
Update Note
Update Note:
Per radiology report, there is a nondisplaced fracture of the lateral right rib which is probably chronic. No other injuries seen on imaging. 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 Daughter states that his 'bone has been dying' over the past year or two and he has been following with ENT and dermatology. Copy of radiology report provided. Patient does not
complain of rib pain on reassessment. He was able to ambulate well with a walker and feels comfortable to go back home. Patient stable for discharge back to his nursing facility. Daughters in agreement with plan and he left in stable condition.
ED Attending Note
-
Portions of this chart may have been created with voice recognition software.� Occasional wrong word or��sound alike� substitutions may have occurred due to the inherent limitations of voice recognition software.
Discharge Plan
Departure
Patient Disposition: Home (Routine Discharge)
Date of Disposition: 10/26/24
Time of Disposition: 10:54
Patient with high blood pressure during this ER visit?: Yes
Discharge Problem:
Ground-level fall, Right shoulder pain
Instructions: Preventing falls in adults
Prescriptions:
No Action
furosemide 40 mg Tablet
20 mg PO DAILY
bupropion HCl 150 mg Tablet Sustained-Release 12 Hr
150 mg PO DAILY
atorvastatin 80 mg Tablet
80 mg PO DAILY
acetaminophen 325 mg Tablet
650 mg PO Q6HPRN PRN (Reason: mild pain/fever)
ipratropium-albuterol 0.5 mg-3 mg(2.5 mg base)/3 mL solution for nebulization
3 ml INHALATION R Q6HPRN PRN (Reason: wheezing)
ketoconazole 2 % Shampoo
1 applic TOPICAL TUFR
folic acid 400 mcg Tablet
0.4 mg PO DAILY
aspirin 81 mg Tablet,Delayed Release (Dr/Ec)
81 mg PO DAILY
methotrexate sodium 2.5 mg Tablet
15 mg PO TH
tamsulosin 0.4 mg Capsule
0.4 mg PO DAILY
econazole nitrate 1 % Cream
1 applic TOPICAL DAILYPRN PRN (Reason: rash)
budesonide 0.5 mg/2 mL suspension for nebulization
0.5 mg inhalation R BID
formoterol fumarate 20 mcg/2 mL solution for nebulization
2 ml INHALATION R BID
PreserVision AREDS-2 250-90-40-1 mg Tablet,Chewable
1 tab PO DAILY
midodrine 5 mg Tablet
5 mg PO BID
econazole nitrate 1 % Cream
1 applic TOPICAL DAILY
pantoprazole [Protonix] 40 mg Tablet,Delayed Release (Dr/Ec)
40 mg PO DAILY
mupirocin 2 % Ointment
1 applic TOPICAL DAILY
Referrals:
Brigid Godwin DO [Family Provider] -
Activity Restrictions/Additional Instructions:
Apply ice to affected area and take Tylenol as needed for pain.
Please follow-up with your family doctor. Return to the ER with any new or worsening symptoms.
Interventions
Interventions:
*Risk Screen - Suicide Last Done: 10/26/24 08:19
*General Assessment Last Done: 10/26/24 11:07
*Neglect/Abuse Screening Last Done: 10/26/24 08:19
*ED- Fall Risk Assessment Last Done: 10/26/24 10:06
*ED COVID-19 Vaccine History Last Done: 10/26/24 10:06
*Nursing Disposition Last Done: 10/26/24 11:07
ED-Musculoskeletal Assessment Last Done: 10/26/24 10:05
ED- Neurological Assessment Last Done: 10/26/24 10:05
ED-Skin Assessment Last Done: 10/26/24 10:05
Discharge Date and Time
Discharge Date/Time: 10/26/24 11:08
Print Language: SLOVAK
[2024-10-26 10:04] VITALS: BP 173/81
[2024-10-26] MEDS: TYLENOL 1000 MG PO (10:51)
== END 2024-10-26 11:08 | disposition home or self-care (01) ==
LOC: EMR 08:16
PROVIDERS: EMERGENCY PHYSICIAN Emergency Medicine; FAMILY PHYSICIAN Family Medicine
DX: M25.511 Pain in right shoulder (principal); W01.190A Fall on same level from slipping, tripping and stumbling with subsequent striking against furniture, initial encounter; I11.0 Hypertensive heart disease with heart failure; I50.9 Heart failure, unspecified; E78.00 Pure hypercholesterolemia, unspecified; F32.A Depression, unspecified; J44.9 Chronic obstructive pulmonary disease, unspecified; N40.0 Benign prostatic hyperplasia without lower urinary tract symptoms; Z79.82 Long term (current) use of aspirin; Z87.891 Personal history of nicotine dependence; Z95.0 Presence of cardiac pacemaker; Z98.2 Presence of cerebrospinal fluid drainage device
CPT/HCPCS: 99284; 70450; 71101; 72125; 73030